=== PATIENT | female | born 1985 | race Caucasian/White ===

== ENCOUNTER 2016-10-22 10:11 | Emergency (ER) | payer BC ==
[2016-10-22 10:46] VITALS: BP 99/59
--- NOTE | 2016-10-22 11:32 | UC ---
Back Pain HPI - HPI Summary HPI Summary: complaint of back pain that started yesterday morning pain is in her lower thoracic spine that radiates up into her shoulder constant aching pain movement of her arms, twisting causes a sharp pain in her upper back straightening her back worsens pain used a heating pad with some relief took some tylenol with codeine approx 1.5 hours ago wuith minimal relief denies trauma recently started exercises on a stabilty ball and at work was moving a large amount fo boxes on sunday denies fever , unintentional weight loss, incontinence - History of Current Complaint Chief Complaint: UCBackPain Stated Complaint: BACK PAIN Time Seen by Provider: 10/22/16 11:25 Hx Obtained From: Patient Hx Last Menstrual Period: 10/15/16 - Allergies/Home Medications Allergies/Adverse Reactions: Allergies Allergy/AdvReac Type Severity Reaction Status Date / Time No Known Allergies Allergy Verified 10/22/16 10:46 Home Medications: Home Medications Acetaminop/Codeine 30 MG TAB* [Tylenol/Codeine 30 MG TAB*] 1 tab PO Q6H PRN [History Confirmed 10/22/16] BuPROPion XL* [Bupropion XL*] 300 mg PO DAILY 10/22/16 [History Confirmed ] FLUoxetine CAP* [Prozac CAP*] 20 mg PO DAILY 10/22/16 [History Confirmed ] PMH/Surg Hx/FS Hx/Imm Hx Previously Healthy: Yes Cardiovascular History Of: Reports: Hypertension Neurological History Of: Reports: Migraine - Surgical History Surgical History: Yes Surgery Procedure, Year, and Place: (3) [place] [facility] [place] - Family History Known Family History: Positive: Hypertension - parents Negative: Cardiac Disease, Diabetes - Social History Occupation: Employed Full-time Lives: With Family Alcohol Use: Occasionally Substance Use Type: None Smoking Status (MU): Former Smoker Type: Cigarettes Have You Smoked in the Last Year: No Review of Systems Constitutional: Negative Skin: Negative Eyes: Negative ENT: Negative Respiratory: Negative Cardiovascular: Negative Gastrointestinal: Negative Genitourinary: Negative Motor: Negative Neurovascular: Negative Musculoskeletal: Other: - back pain Neurological: Negative Psychological: Negative All Other Systems Reviewed And Are Negative: Yes Physical Exam Triage Information Reviewed: Yes Appearance: Well-Nourished, Pain Distress, Obese Vital Signs: Initial Vital Signs Temp 98.5 F 10/22/16 10:36 Pulse 64 10/22/16 10:36 Resp 14 10/22/16 10:36 BP 99/59 10/22/16 10:36 Pulse Ox 97 10/22/16 10:36 Vital Signs Reviewed: Yes Eyes: Positive: Conjunctiva Clear ENT: Positive: Pharynx normal, TMs normal Neck: Positive: Supple, No Lymphadenopathy, Other: - no spine tenderness Respiratory: Positive: Lungs clear, Normal breath sounds, No respiratory distress, No accessory muscle use Cardiovascular: Positive: RRR, No Murmur, Pulses Normal Abdomen Description: Positive: Nontender, No Organomegaly, Soft Bowel Sounds: Positive: Present Musculoskeletal: Positive: Other: - Spine have no noted deformities or signs of inflammation. Curvature of thoracic, and lumbar spine are within normal limits. Bony features of shoulders and hips are of equal height bilaterally. Posture is upright, and gait is smooth and normal. Spinous processes of T1-L5 palpable, midline, and non-tender; No step-offs. right lumbar paraspinal tenderness. Flexion, extension, and rotation of the remaining spinal column is limited due to pain, extension causes the most pain. Lateral bending to the right causes [pain. Neurological Exam: Normal Neurological: Positive: Other: - patellar reflexes intact, SLR negative bilaterally Psychological Exam: Normal Skin Exam: Normal Back Pain Course/Dx - Differential Dx/Diagnosis Differential Diagnosis/HQI/PQRI: Herniated Disc, Strain, Sprain Provider Diagnoses: back pain Discharge - Discharge Plan Condition: Stable Disposition: HOME Prescriptions: Metaxalone TAB* [Skelaxin TAB*] 800 mg PO TID #30 tab Patient Education Materials: Back Pain (ED) Forms: *Work Release Referrals: Alison Tam MD [Primary Care Provider] - Additional Instructions: Start skelaxin as directed. Do not drink alcohol or drive while taking skelaxin Please call physical therapy for further evaluation and treatment. Take ibuprofen for fever or pain. Increase fluids and rest. Please review your discharge instructions. If your symptoms do not improve please call your primary care provider or return to urgent care.
== END 2016-10-22 11:56 | disposition home or self-care (01) ==
LOC: UCCORT 10:11
DX: M54.9 Dorsalgia, unspecified (principal); I10 Essential (primary) hypertension; G43.909 Migraine, unspecified, not intractable, without status migrainosus; Z87.891 Personal history of nicotine dependence; E66.9 Obesity, unspecified
CPT/HCPCS: 99212; G0463

== ENCOUNTER 2017-08-30 16:38 | Emergency (ER) | payer BC ==
[2017-08-30 16:46] VITALS: BP 151/93
--- NOTE | 2017-08-30 18:07 | UC ---
Abdominal Pain Female HPI - HPI Summary HPI Summary: Patient is a 32-year-old female presenting to the from [facility] with chief complaint of suprapubic pain described as cramping with associated back pain. Denies any urinary symptoms. The patient is currently trying to conceive and is 4 days late past her menses. She is on her fifth month s/p control. History of PCOS. She states this feels like menstrual cramps, but denies any bleeding or other discharge. She has taken multiple tests, the soonest was this morning, all which have been negative. She has a follow-up [facility] visit in 6 days due to her PCOS. History of abdominoplasty several years ago. Denies any fevers, sweats, chills. Denies any nausea, vomiting, diarrhea, constipation. She typically has severe cramps with her menses and states this feels similar, although has been 4 days of cramping and usually will have her. By this time. She is concerned over ectopic as well as normal or ovulation pain. - History of Current Complaint Chief Complaint: UCGU Stated Complaint: ABDOMINAL AND BACK PAIN Time Seen by Provider: 08/30/17 16:54 Hx Obtained From: Patient Hx Last Menstrual Period: 07/30/17 ?: No Onset/Duration: Sudden Onset Timing: Constant Severity Initially: Moderate Severity Currently: Moderate Pain Intensity: 3 Pain Scale Used: 0-10 Numeric Location: Suprapubic Radiates: No Character: Cramping Aggravating Factor(s): Nothing Alleviating Factor(s): Nothing Associated Signs and Symptoms: Positive: Back Pain. Negative: Constipation, Blood in Stool, Urinary Symptoms, Decreased Appetite, Vaginal Bleeding, Nausea, Vomiting, Diarrhea - Risk Factors Ectopic Risk Factor: Maternal Age ^ 30 Ovarian Torsion Risk Factor: Reproductive Age, Ovarian Cysts/Tumors Allergies/Adverse Reactions: Allergies Allergy/AdvReac Type Severity Reaction Status Date / Time No Known Allergies Allergy Verified 08/30/17 16:46 PMH/Surg Hx/FS Hx/Imm Hx Previously Healthy: Yes - Surgical History Surgical History: Yes Surgery Procedure, Year, and Place: (3) C-sections- [facility] – [place]- 2005/2007/2008 - Family History Known Family History: Positive: Hypertension - parents Negative: Cardiac Disease, Diabetes - Social History Occupation: Employed Full-time Lives: With Family Alcohol Use: Occasionally Substance Use Type: None Smoking Status (MU): Former Smoker Type: Cigarettes Have You Smoked in the Last Year: No Review of Systems Constitutional: Negative Skin: Negative Respiratory: Negative Cardiovascular: Negative Gastrointestinal: Abdominal Pain Genitourinary: Negative Neurovascular: Negative Musculoskeletal: Negative Neurological: Negative Psychological: Anxious All Other Systems Reviewed And Are Negative: Yes Physical Exam Triage Information Reviewed: Yes Appearance: Pain Distress Vital Signs: Initial Vital Signs Temp 98.6 F 08/30/17 16:42 Pulse 95 08/30/17 16:42 Resp 19 08/30/17 16:42 BP 151/93 08/30/17 16:42 Pulse Ox 100 08/30/17 16:42 Vital Signs Reviewed: Yes Eye Exam: Normal Neck exam: Normal Neck: Positive: Supple, No Lymphadenopathy Respiratory Exam: Normal Respiratory: Positive: Chest non-tender, Lungs clear Cardiovascular Exam: Normal Cardiovascular: Positive: RRR Abdomen Description: Positive: Soft Musculoskeletal: Positive: Strength Intact Psychological Exam: Normal Psychological: Positive: Normal Response To Family Skin Exam: Normal Abd Pain Female Course/Dx - Course Course Of Treatment: During the course of treatment, the patient is discussed with at length the possibilities for her abdominal cramping. Due to the suprapubic nature of the abdominal pain, likely differentials are UTI, , ovulation pain, menstrual cramps, ectopic, PCOS, dysmenorrhea. UA obtained which is negative for UTI and shows negative . Unable to perform an ultrasound here in the urgent care and I have advised the patient to go to the emergency room. She states she is unable to afford that at this time. Again, I discussed with her at length the possibilities of her abdominal pain, due to a negative it is unlikely she has ectopic . She is requesting a hCG blood test at this time she is concerned the UA will not show as it may be too soon. This may be a very early and or ovulation pain , which does not warrant an ultrasound at this time. I did not feel ruling out ectopic is essential at this time, the patient is encouraged to follow up with the emergency room for any worsening or changing symptoms. This may be dysmenorrhea in which likely she will have her menses soon. She will follow-up with [facility] in 6 days as her regular appointment. She is encouraged prostaglandins (NSAIDs) for relief, but I have given her some pain control as well. - Differential Dx/Diagnosis Provider Diagnoses: Suprapubic Pain Discharge - Sign-Out/Discharge Documenting (check all that apply): Discharge - Discharge Plan Condition: Stable Disposition: HOME Prescriptions: Hydrocodone/Acetamin 10/325(NF [Jay 10/325 (NF)] 1 tab PO Q6H #12 tab MDD 4 Patient Education Materials: Dysmenorrhea (ED), [place] (ED) Referrals: Alison Tam MD [Primary Care Provider] - Additional Instructions: I have given you information on some topics we discussed I am unable to discern where your discomfort is from I still recommend you follow up with Emergency Department for any worsening symptoms Urinalysis shows no UTI and negative for HCG lab result will return in approximately 24 hours, we will call with positive results, however you are more than welcome to call us too. Please keep your appt with OBGYN next week Ibuprofen 600mg three times daily for cramping Hydrocodone as prescribed for pain Moist heat to the back and lower abdomen - Billing Disposition and Condition Condition: STABLE Disposition: HOME
== END 2017-08-30 17:50 | disposition home or self-care (01) ==
LOC: UCEAST 16:38
DX: R10.30 Lower abdominal pain, unspecified (principal); Z87.891 Personal history of nicotine dependence
CPT/HCPCS: 36415; 81003; 84702; 99212; G0463

== ENCOUNTER 2018-07-26 16:48 | Emergency (ER) | payer OTHER ==
--- OUTSIDE RECORDS SUMMARY | 2018-07-26 17:37 | XMS REPORT | Continuity of Care Document ---
:1985 External Reference #:[id number] Author Name Moreno Hatch M.D. Address [address] [place] [address] Care Team Providers Name Role Phone Moreno Hatch M.D. Care Team Information Employee Adviser Unavailable Payers Date Identification Numbers Payment Provider Subscriber Policy Number: [id number] [facility] Kasandra Molina PayID: [id number] [address] [place] [address] Policy Number: [id number] [place] Kasandra Molina PayID: [id number] [address] [place] [address] Advance Directives Description No Information Available Problems Description No Information Family History Date Family Member(s) Observation Comments Father A&W Mother A&W First Son A&W Second Son A&W First Daughter A&W Number of Siblings Siblings: none Paternal Grandfather A&W Paternal Grandmother A&W Maternal Grandfather Hypertension Maternal Grandfather due to CT () Maternal Grandmother due to Breast Cancer () Social History Type Date Description Comments Sex Unknown Education Highest level of education completed is an associate degree Marital Status Patient is Living Situation Lives with spouse, sons and daughter Pets Household pets include 2 dogs Occupation Homemaker Environmental Hazards Not exposed to any environmental hazards--low lead risk. Cigarette Use Former cigarette smoker- quit 2015. 1PPD for 14 yrs Alcohol Alcohol use prior to : 2 drinks/week. Stopped with Tobacco Use Start: Unknown Patient is a former End: Unknown smoker Drug Use Denies drug use Smoking Status Reviewed: 02/01/18 Patient is a former smoker Daily Caffeine Does not consume caffeine, stopped with due to n/v. Exercise Type/Frequency Exercises regularly Current Seat Belt/Car Seat Always uses a seat belt STD's No STD history CHERRY: 09/30/2018 Estimated Date of Based on 1st Delivery Ultrasound Allergies, Adverse Reactions, Alerts Description No Known Drug Allergies Medications Medication Date Status Form Strength Qnty SIG Indications Ordering Provider Ryan 03/[address] 10-10mg 60tab take 2 s tablets by Gilberto mouth at CNM bedtime, may add 1 tablet in morning and one midday if needed. PNV-Dha 03/12 Active Capsules 27-0.6-0. 30cap 1 by mouth 4-300mg s every day Mcmullen, CNM Blood Glucose 03/12 Active Kit W/Device 1Moni use in in tor the morning Mcmullen, System before CNM eating, then 2 hours after every meal Blood Glucose 03/12 Active Strips 1Box for use Mya with blood Mcmullen, glucose CNM monitoring system. test 4x day as directed Lancets 03/12 Active Misc 100un for use its with blood Mcmullen, glucose CNM monitor. use as directed four times a day Valium 12/27 Hx Tablets 5mg 3tabs 1 po prior to Bridgette - procedure [facility] 01/29 prn, nte tab daily Naproxen 11/11 Hx Tablets 500mg 1 by mouth R51 Megan twice a day Bridgette - with food [employer] 01/29 samples Acetaminophen-Co 11/11 Hx Tablets 300-30mg 90tab 1-2 every 8 R51 kishor Guzman #3 /2015 s hours as Bridgette - needed for [employer] 01/29 pain Prozac 06/09 Hx Capsules 20mg 90cap 1 by mouth Megan, s every day Bridgette - [employer] 02/21 Topamax 06/09 Hx Tablets 50mg 90tab 1 by mouth F41.1 Megan, s once a day Bridgette - [employer] 02/21 Bupropion HCL ER 12/01 Hx Tablets ER 150mg 90tab 1 by mouth F41.9 Megan, (XL) 24HR s every day Bridgette - [employer] 03/12 Reyna 03/05 Hx Tablets 3-0.03mg 3tabs take one Z30.9 Megan, tablet by Bridgette - mouth every [employer] Sherlyn 06/22 Hx Tablets 3-0.03mg 1pack uase as Julia directed Shanta Prado, 02/21 Cephalexin 06/22 Hx Tablets 500mg 21tab 1 tablet Julia s every 8 [place] - gale Prado, 02/21 Ortho Tri-Cyclen 01/10 Hx Tablets 0.18/0.21 1pack 1po qd 5/0.25 Michaelle, - mg-3 CNM 02/21 Keflex 08/09 Hx Capsules 500mg 14cap one tab bid s x 7 days Roxana MORGAN, - CN 02/21 Metronidazole 06/23 Hx Tablets 500mg 14tab 1 po bid x s 7 days [place], - [facility] 06/11 Diflucan 06/23 Hx Tablets 150mg 2tabl 1 tablet ets today. mr x [place], - 3 days if [facility] 06/11 symptoms persist. Vernell 28 06/09 Hx Tablets 3-0.03mg 3tabs 1 po qd,please [place], - substitute CNM 01/10 Prenate Dha 03/02 Hx Capsules 27-0.6-0. 30cap 1 po qd 4-30 s Benedict, - [facility] 06/11 Anusol-HC 02/26 Hx Cream 2.5% 1Tube apply 3xd prn Michaelle, - CNM 03/10 Prenate Dha 08/18 Hx Capsules 30cap 1 po qd s Benedict, - CNM 03/02 Ortho Tri-Cyclen 12/08 Hx Tablets 1Pack 1 po qd Moreno AValentina /2007 Shivam Hatch M.D. 08/18 Nor Q D 11/20 Hx 28uni 1 PO qd Moreno AValentina /2007 ts Shivam Hatch M.D. 12/08 Humulin N 03/04 Hx Injection 100Units/ 10ml 2 units Moreno Villagomez /2006 ML subcutaneou Holden, - s nph at M.D. 03/10 bedtime Insulin Syringes 03/04 Hx 100un use as Moreno Villagomez /2006 its directed Shivam Hatch M.DValentina 03/10 Ortho Tri-Cyclen 08/07 Hx Tablets 0.035mg;0 3Mont 1 po qd Flores Gutierrez /2006 .18mg;0.0 hs Rigo - 35 M.D. 03/04 Precare Premier 05/09 Hx 100un 1 PO qd Flores MValentina /2005 its Rigo - M.DValentina 11/04 Ampicillin 04/09 Hx Capsules 250mg 40cap One Tab 4X Javid Ashley /2005 s Per Day Shivam Espinoza M.D. 05/09 Lo-Dose Ultra 03/14 Hx 100un to use bid Flores Gutierrez Fine Insulin /2005 its as directed Rigo Syringes - M.DValentina 05/09 Diphenhydramine 02/07 Hx Tablets 25mg 30tab 1-2 tablets Mya /2005 s po hs prn Benedict - [facility] 05/09 Ucose Meter 01/02 Hx use qid for Naga Cedillo, /2005 bs C.N.M. - monitoring 01/02 One Touch Ulta 01/02 Hx 100un to use qid Flores Gutierrez Glucose Meter /2005 its for bs Rigo - monitoring M.D. 05/09 One Touch Ultra 01/02 Hx 100un To Use qid Naga Cedillo Strips /2005 its For BS C.N.M. - Testing 05/09 Accu-Check 12/29 Hx 1unit use as Dionna Compact /2005 s directed Roxana MORGAN, Glucometer - [facility] 11/04 Accu-check 12/29 Hx to use qid Mya Compact Glucose /2005 for bs Benedict Glucometer - testing [facility] 07/04 Accu-Check 12/29 Hx 100un to use qid Dionna Compact Test /2005 its as directed Roxana LUSTER APPLICATOR, Strips - [facility] 11/04 Accu-Check 12/29 Hx 100un as directed Dionna Compact Lancets /2005 its Roxana MORGAN, - [facility] 11/04 Terazol 3 10/06 Hx Cream 0.8% 1 Mya Applicator Benedict, - Per Vagina CNM 05/09 hs X3 Promethazine 09/11 Hx Tablets 25mg 10tab Take one Flores Gutierrez s tablet Rigo, - every 8 hrs M.D. 05/09 as needed for nausea. 08/16 Hx Tablets 30tab 1 po qd Moreno Villagomez Vitamins s Holden - M.D. 08/18 [place] 08/08 Hx Tablets 120mg;200 90tab Kamryn mg s Stephan - C.N.M. 08/16 Humulin N 08/08 Hx Injection 100Units/ 10ml 2 units Flores Gutierrez ML subcutaneou Shivam Sierra s each am M.D. 05/09 and each qd Low Dose Ulta 08/08 Hx 100un to use for Flores KendallValentina Suarez Insu its bid as Rigo, Syringes - directed M.D. 03/14 Omeprazole Hx Capsules 20mg 90cap 1 by mouth Megan, /0000 DR turner every day Bridgette - ELISEO 02/21 Vitamin B-12 Hx Tablets 1000mcg 1 by mouth Unknown /0000 every other - day- 03/12 Calcium 600+D Hx Tablets 600-400mg one by Unknown /0000 -Unit mouth three - times a 02/21 day- /2015 Valerie Fluoxetine HCL Hx Unknown (PMDD) / - 01/29 Multivitamin 00/ Hx Unknown Women /0000 - 01/29 Calcium + D3 00/ Hx Unknown /0000 - 03/12 Magnesium 00/00 Hx Unknown /0000 - 03/12 Vitamin Hx Unknown /0000 - 03/12 Medications Administered in Office Medication Date Status Form Strength Qnty SIG Indications Ordering Provider PT SCRN Tbco Administered Injection Moreno Villagomez Id as Non User 019 Brandon Hatch PT SCRN Tbco Administered Injection Moreno Villagomez Id as Non User 018 Brandon Hatch PT SCRN Tbco Administered Injection Moreno Oscar as Non User 018 Brandon Hatch Immunizations CPT Code Status Date Vaccine Lot # [id number] Given 06/18/2018 Tetnus, Diptheria Toxoids And Acellular Pertussis, [id number] PT > 7Yrs Old [id number] Given 02/16/2009 Influenza Virus Vaccine 3Years Or Older Vital Signs Date Vital Result Comment 03/12/2018 10:01am BP Systolic 118 mmHg BP Diastolic 70 mmHg Height 63 inches 5'3" Weight 195.00 lb BMI (Body Mass Index) 34.5 kg/m2 Last Menstrual Period [id number] 4 Parity 3 02/01/2018 2:27pm BP Systolic 122 mmHg BP Diastolic 72 mmHg Height 63 inches 5'3" Weight 201.00 lb BMI (Body Mass Index) 35.6 kg/m2 Last Menstrual Period [id number] 4 Parity 3 01/29/2018 8:29am BP Systolic 118 mmHg BP Diastolic 72 mmHg Height 63 inches 5'3" Weight 200.00 lb BMI (Body Mass Index) 35.4 kg/m2 Last Menstrual Period [id number] 4 Parity 3 02/22/2016 3:06pm BP Systolic 112 mmHg BP Diastolic 80 mmHg Height 63 inches 5'3" Weight 163.00 lb BMI (Body Mass Index) 28.9 kg/m2 Last Menstrual Period [id number] 3 Parity 3 12/28/2015 1:04pm BP Systolic 110 mmHg BP Diastolic 70 mmHg Body Temperature 98.2 F Heart Rate 64 /min Respiratory Rate 18 /min Height 63 inches Weight 162.00 lb BMI (Body Mass Index) 28.7 kg/m2 11/12/2015 8:11am BP Systolic 110 mmHg BP Diastolic 70 mmHg Body Temperature 98.4 F Heart Rate 72 /min Respiratory Rate 16 /min Height 63 inches Weight 164.00 lb BMI (Body Mass Index) 29.0 kg/m2 06/29/2010 8:35am BP Systolic 120 mmHg BP Diastolic 84 mmHg Weight 203.00 lb Last Menstrual Period [id number] 3 Parity 3 06/22/2010 2:28pm BP Systolic 160 mmHg Pt advised to monitor bp's and contact pcp BP Diastolic 100 mmHg Pt advised to monitor bp's and contact pcp Weight 205.00 lb 05/25/2010 10:49am BP Systolic 138 mmHg BP Diastolic 82 mmHg Body Temperature 98.8 F Weight 207.00 lb Last Menstrual Period [id number] 3 Parity 3 08/09/2009 9:26am BP Systolic 118 mmHg BP Diastolic 70 mmHg Body Temperature 96.4 F Weight 175.00 lb 07/14/2009 10:16am BP Systolic 108 mmHg BP Diastolic 60 mmHg Height 62.5 inches 5'2.50" Weight 178.00 lb BMI (Body Mass Index) 32.0 kg/m2 Last Menstrual Period [id number] 2 Parity 2 06/23/2009 9:21am BP Systolic 124 mmHg BP Diastolic 72 mmHg Height 62.50 inches 5'2.50" Weight 184.00 lb BMI (Body Mass Index) 33.1 kg/m2 04/12/2009 1:05pm BP Systolic 116 mmHg BP Diastolic 70 mmHg Height 62.50 inches 5'2.50" Weight 179.00 lb BMI (Body Mass Index) 32.2 kg/m2 03/10/2009 10:05am BP Systolic 130 mmHg BP Diastolic 80 mmHg Weight 200.00 lb 02/24/2009 10:35am BP Systolic 110 mmHg BP Diastolic 68 mmHg Body Temperature 98.8 F Heart Rate 72 /min Respiratory Rate 16 /min Height 62.5 inches 5'2.50" Weight 198.00 lb BMI (Body Mass Index) 35.6 kg/m2 3 Parity 2 08/18/2008 8:20am BP Systolic 128 mmHg BP Diastolic 60 mmHg Height 62.5 inches 5'2.50" Weight 188.00 lb BMI (Body Mass Index) 33.8 kg/m2 11/05/2007 11:25am BP Systolic 114 mmHg BP Diastolic 76 mmHg Height 62.5 inches 5'2.50" Weight 208.00 lb BMI (Body Mass Index) 37.4 kg/m2 Last Menstrual Period 0 2 Parity 2 09/30/2007 10:45am BP Systolic 142 mmHg BP Diastolic 84 mmHg Height 62.5 inches 5'2.50" Weight 211.00 lb BMI (Body Mass Index) 38.0 kg/m2 09/18/2007 12:57pm BP Systolic 114 mmHg BP Diastolic 70 mmHg Heart Rate 77 /min Respiratory Rate 16 /min Height 62.5 inches 5'2.50" Weight 227.00 lb BMI (Body Mass Index) 40.9 kg/m2 Last Menstrual Period 0 05/09/2006 1:23pm BP Systolic 122 mmHg BP Diastolic 85 mmHg Weight 190.00 lb Last Menstrual Period [id number] 1 04/23/2006 12:56pm BP Systolic 128 mmHg BP Diastolic 70 mmHg Height 63 inches 5'3" Weight 190.00 lb BMI (Body Mass Index) 33.7 kg/m2 04/09/2006 2:55pm BP Systolic 128 mmHg BP Diastolic 70 mmHg Height 64 inches 5'4" Weight 197.31 lb BMI (Body Mass Index) 33.9 kg/m2 Results Test Date Facility Test Result H/L Range Note Urine Drug 04/23/2018 [facility] Urine Amphetamine Negative ng/ mL 1 Comp [address] [place] [address] [phone] Urine Barbiturates Negative ng/mL 2 Urine Benzodiazepines Negative ng/mL 3 Urine Cocaine Negative ng/mL 4 Urine Phencyclidine Negative ng/mL Cutoff: 25 Urine Tetrahydrocannabinol Negative ng/mL Cutoff: 50 5 Creatinine, Urine 219.6 mg/dL Specific [place] 1.025 pH 5.8 Oxidants Negative 6 Adulterants Comment Normal Codeine, Ur Not Detected ng/mL Cutoff: 25 7 Xzrkkut-5-xevb-glucuronide, Ur Not Detected ng/mL 8 Morphine, Ur Not Detected ng/mL Cutoff: 25 9 Hshtrkjf-3-xsob-glucuronide, U Not Detected ng/mL 10 6-monoacetylmorphine, Ur Not Detected ng/mL Cutoff: 25 11 Hydrocodone, Ur Not Detected ng/mL Cutoff: 25 12 Norhydrocodone, Ur Not Detected ng/mL Cutoff: 25 13 Dihydrocodeine, Ur Not Detected ng/mL Cutoff: 25 14 Hydromorphone, Ur Not Detected ng/mL Cutoff: 25 15 Wzjfmipwybkfa6elwectlhwlzcyxe Not Detected ng/mL 16 Oxycodone, Ur Not Detected ng/mL Cutoff: 25 17 Noroxycodone, Ur Not Detected ng/mL Cutoff: 25 18 Oxymorphone, Ur Not Detected ng/mL Cutoff: 25 19 Cnmpjrlwrgk-9-eszr-glucuronide Not Detected ng/mL 20 Noroxymorphone, Ur Not Detected ng/mL Cutoff: 25 21 Fentanyl, Ur Not Detected ng/mL Cutoff: 2 22 Norfentanyl, Ur Not Detected ng/mL Cutoff: 2 23 Meperidine, Ur Not Detected ng/mL Cutoff: 25 24 Normeperidine, Ur Not Detected ng/mL Cutoff: 25 25 Naloxone, Ur Not Detected ng/mL Cutoff: 25 26 Ypawadwf-9-puwq-glucuronide, U Not Detected ng/mL 27 Methadone, Ur Not Detected ng/mL Cutoff: 25 28 Eddp, Ur Not Detected ng/mL Cutoff: 25 29 Propoxyphene, Ur Not Detected ng/mL Cutoff: 25 30 Norpropoxyphene, Ur Not Detected ng/mL Cutoff: 25 31 Tramadol, Ur Not Detected ng/mL Cutoff: 25 32 O-desmethyltramadol, Ur Not Detected ng/mL Cutoff: 25 33 Tapentadol, Ur Not Detected ng/mL Cutoff: 25 34 N-desmethyltapentadol, Ur Not Detected ng/mL Cutoff: 50 35 Caxrcxltbb-olqp-tcdakbulmcu, U Not Detected ng/mL 36 Buprenorphine, Ur Not Detected ng/mL Cutoff: 5 37 Norbuprenorphine, Ur Not Detected ng/mL Cutoff: 5 38 Norbuprenorphine glucuronide Not Detected ng/mL Cutoff: 20 39 Opioid Interpretation See Comment 40 Serum Integrated Screen Part 2 MT 04/23/2018 [facility] Interpretation SEE BELOW 41 Risk For Ontd <1:5000 Age Risk Down Syndrome 1:460 NORBERTO Down Syndrome Risk 1:2800 <1:270 NORBERTO Trisomy 18 Risk <1:5000 <1:100 Calculated Gestational Age 17.0 Afp,Serum 30.1 ng/mL Afp Mom 1.01 42 HCG,Serum 70.2 IU/mL HCG Mom 3.05 Estriol,Free 1.36 ng/mL Estriol Mom 1.56 Inhibin A,Dimeric 364 pg/mL Inhibin A Mom 2.59 Liana-A 1151.9 ng/mL 43 Liana-A Mom 1.66 44 Referring Physician Name GELBER Referring Physician Phone NOT GIVEN Referring Physician Npi NOT GIVEN Specimen # From Part 1 SEE NOTE Date Of 1985 Collection Date 04/23/2018 Maternal Weight 214 lbs Est'd Date Of Delivery 10/01/2018 Mother's Ethnic Origin Insulin Depend Diabetic N Repeat Specimen N Number Of Fetuses 1 HX Of Neural Tube Defects N Cigarette Smoker NOT GIVEN 45 Sequential Integreated SCRN 2 MT 04/23/2018 [facility] Interpretation SEE BELOW 46 Risk For Ontd UNAVAILABLE Age Risk Down Syndrome UNAVAILABLE NORBETRO Down Syndrome Risk UNAVAILABLE <1:270 NORBERTO Trisomy 18 Risk UNAVAILABLE <1:100 Calculated Gestational Age UNAVAILABLE Afp,Serum UNAVAILABLE ng/mL Afp Mom SEE BELOW 47 HCG,Serum UNAVAILABLE IU/mL HCG Mom UNAVAILABLE Estriol,Free UNAVAILABLE ng/mL Estriol Mom UNAVAILABLE Inhibin A,Dimeric UNAVAILABLE pg/mL Inhibin A Mom UNAVAILABLE Liana-A UNAVAILABLE ng/mL 48 Liana-A Mom UNAVAILABLE NT Mom UNAVAILABLE Referring Physician Name NOT GIVEN Referring Physician Phone NOT GIVEN Referring Physician Npi NOT GIVEN Specimen # From Part 1 NOT GIVEN Date Of 1985 Collection Date 04/23/2018 Maternal Weight 214 lbs Est'd Date Of Delivery NOT GIVEN Nuchal Translucency NOT GIVEN mm [place] Length NOT GIVEN mm Ultrasound Date NOT GIVEN Nasal Bone NG Mother's Ethnic Origin NOT GIVEN Insulin Depend Diabetic NOT GIVEN Repeat Specimen NOT GIVEN Number Of Fetuses NOT GIVEN HX Of Neural Tube Defects NOT GIVEN Cigarette Smoker NOT GIVEN Twin B Nasal Bone NG 49 GC/Chlamydia Dna 03/27/2018 [facility] Chlamydia [place] [address] trachomatis Rna [phone] Neisseria gonorrhoeae (GC) Rna Negative Negative Serum Integrated SCRN Part 1 MT 03/27/2018 [facility] Comment SEE BELOW 50 Referring Physician Name GELBER 51 Referring Physician Phone NG 52 Referring Physician Npi NG 53 Date Of 1985 54 Collection Date 03/27/2018 55 Maternal Weight 195 lbs 56 Est'd Date Of Delivery 10/01/2018 57 CHERRY Determined By US 58 Mother's Ethnic Origin C 59 Number Of Fetuses 1 60 Insulin Depend Diabetic N 61 Repeat Specimen N 62 HX Of Neural Tube Defects N 63 Prev Down Synd N 64 Donor Egg N 65 Donor Age:Egg Retrieval N/A 66 Cigarette Smoker NG 67 Spinal Muscular Atrophy 03/27/2018 [facility] Technical Results NEGATIVE Negative 68 SMN1 2 COPIES SMN2 2 COPIES Interpretation SEE BELOW 69 PNL No 03/27/2018 [facility] Rubella Screen Immune Immune 70 [place] [address] [phone] Hemoglobin A1c 5.2 % N 4.0-5.6 71 Hepatitis B Surface Ag Nonreactive Nonreactive 72 Syphillis Igg W/Reflex RPR Nonreactive Nonreactive 73 CBC With No 03/27/2018 [facility] White Blood 8.9 10^3/uL N 3.5-10[place]8 [place] [address] Count [phone] Red Blood Count 4.02 10^6/uL N 4.00-5.40 Hemoglobin 12.3 g/dL N 12.0-16.0 Hematocrit 37 % N 35-47 Mean Corpuscular Volume 91 fL N 80-97 Mean Corpuscular Hemoglobin 31 pg N 27-31 Mean Corpuscular HGB Conc 34 g/dL N 31-36 Red Cell Distribution Width 15 % N 10.5-15 Platelet Count 215 10^3/uL N 150-450 Mean Platelet Volume 9.3 um3 N 7.4-10.4 Type And Screen 03/27/2018 [facility] Patient [place] [address] [phone] Antibody Screen NEGATIVE HIV 1/2 AB 03/27/2018 [facility] HIV 1 2 Nonreactive Nonreactive [address] [place] [address] Antibody [phone] Lead 03/27/2018 [facility] Lead,Venous, < 1.0 g/dL 0.0-4.9 [address] [place] [address] B [phone] Venous/Capillary Venous Submitting Laboratory Phone [phone] Laboratory test 03/27/2018 [facility] TSH 1.18 N 0.34-5.60 77 [place] [address] mcIU/mL [phone] Urine Culture And 03/12/2018 [facility] Urine Culture SEE RESULT [address] [place] [address] BELOW [phone] Laboratory test 01/29/2018 [facility] HCG 5628.00 79 [place] [address] mIU/mL [phone] Comprehensive 12/01/2014 N2N/CCD Import A/G Ratio 1.5 CALC 0.6-2.3 Metabolic Prof Albumin 4.3 g/dL 3.8-5.5 Alk. Phosphatase 71 U/L 30-110 Alt (SGPT) 12 U/L 7-35 Ast (Sgot) 13 U/L 5-34 BUN 16 mg/dL 6-26 BUN/Creat Ratio 20.0 CALC 8.0-36.0 Calcium 9.6 mg/dL 8.6-10.2 Carbon Dioxide 24 mEq/L 21-32 Chloride 102 mEq/L 94-112 Creatinine 0.8 mg/dL 0.6-1.4 Globulin 2.9 g/dL 2.0-4.8 Glucose 100 mg/dL 70-105 Potassium 3.9 mEq/L 3.6-5.5 Sodium 136 mEq/L 134-149 Total Bilirubin 0.4 mg/dL 0.2-1.3 Total Protein 7.2 g/dL 6.4-8.3 Laboratory test 12/01/2014 N2N/CCD Import Hematocrit 35.7 % Low 36.1 - finding (Fma/CMC/CTX) 50.3 Hemoglobin (Fma/CMC/CTX) 12.4 g/dL 12.1 - 17.2 Lymph% 31.1 % 17.0-48.0 Mean Corpuscular Hemo Concen 34.7 32.0-36.0 Mean Corpuscular Hemoglobin 30.9 27.6-33.3 Mean Corpuscular Vol 89 82.2-97.4 Mean Platelet Volume 7.5 5.5-11.0 Mixed% 6.1 Neutrophils % 62.8 Platelets 242 10^3/ul 150-400 RBC 4.02 3.90-5.70 RDW 13.2 11.6-13.7 TSH 2.47 mIU/L 0.50-6.00 WBC 5.9 3.6-9.6 Laboratory test 12/01/2014 N2N/CCD Import C-Reactive Protein 7.5 mg/L High 0.0-5.0 80 finding Lipid And Glucose 06/08/2010 [facility] Glucose 121 mg/dL High 70-100 [place] [address] [phone] Lipid Profile 06/08/2010 [facility] Triglyceride 60 mg/dL 40- 200 (Trig/Chol/HDL) [place] [address] [phone] Cholesterol 190 mg/dL Less Than 200 81 High Density Lipoprotein 59 mg/dL 40-60 82 Cholesterol/HDL Ratio 3.22 AVERAGE 1-4.44 Low Density Lipoprotein 119 mg/dL High Less Than 100 83 CBC With 06/08/2010 [facility] White Blood 5.7 CUMM 4.8-10.8 [place] [address] Count [phone] Red Cell Count 4.21 CUMM 4.2-5.4 Hemoglobin 13.2 g/dL 12.0-16.0 Hematocrit 38 % 35-47 Mean Corpuscular Volume 91 um3 79-97 Mean Corpuscular Hemoglob 31 pg 27-31 Mean Corpuscular HGB Cone 35 g/dL 32-36 Redcell Distribution WDTH 13 % 10.5-15 Platelet Count 225 CUMM 150-450 Mean Platelet Volume 7.7 um3 7.4-10.4 Gran % 52.0 % 38-83 Lymph % 31.2 % 25-47 Mononuclear % 9.1 % High 1-9 Eosinophil % 7.0 % High 0-6 Basophil % 0.7 % 0-2 Abs Lymphs 1.8 1.0-4.8 Abs Mononuclear 0.5 0-0.8 Absolute Neutrophil Count 3.0 1.5-7.7 Abs Eosinophils 0.4 0-0.6 Abs Basophils 0 0-0.2 Testosterone Free 06/08/2010 [facility] Free 0.7 ng/dL 0.3- 1.9 84 & [place] [address] Testosterone [phone] Total Testosterone 46 ng/dL 8-60 85 Laboratory test 06/08/2010 [facility] TSH 1.13 MIU/ML 0.34- 5.60 [place] [address] [phone] Dhea 13 ng/mL Abnormal <13 86 Laboratory 07/14/2009 [facility] Cytology 87 [place] [address] <SEE NOTE> [phone] GC/Chlyamdia 07/14/2009 [facility] CHL On Thin NEGATIVE Negative [address] [place] [address] Prep Vial Vial [phone] GC On Thin Prep Vial NEGATIVE Negative 89 Laboratory 06/23/2009 [facility] Syphilis NON-REACTIVE Nonreactive [address] [place] [address] IgG [phone] Vad 06/23/2009 [facility] Vad Final NONREACTIVE Nonreactive [address] [place], [place] [address] [phone] Culture,HSV,Ra 06/23/2009 [facility] GENITAL-VAGINA/ 92 pid W/Typ V <SEE NOTE> HSV Culture (SEE NOTE) 93 CBC With 03/03/2009 [facility] White Blood 15.6 CUMM High 4.8- 10.8 [place] [address] Count [phone] Red Cell Count 3.66 CUMM Low 4.2-5.4 Hemoglobin 11.4 g/dL Low 12.0-16.0 Hematocrit 34 % Low 35-47 Mean Corpuscular Volume 92 um3 79-97 Mean Corpuscular Hemoglob 31 pg 27-31 Mean Corpuscular HGB Cone 34 g/dL 32-36 Redcell Distribution WDTH 14 % 10.5-15 Platelet Count 226 CUMM 150-450 Mean Platelet Volume 8.0 um3 7.4-10.4 Polysegmented Neutrophil 75 % 38-83 Band Neutrophil 2 % 0-8 Lymphocyte 19 % Low 25-47 Monocyte 1 % 0-13 Eosenophil 3 % 0-6 Absolute Neutrophil Count 12.0 Anisocytosis SLIGHT Platelet Evaluation LARGE Type And Screen 03/03/2009 [facility] Patient [place] [address] [phone] Antibody Screen NEGATIVE Specimen Discard Date 03/17/09 94 Laboratory test 02/16/2009 [facility] Genital For GRP NG2 [address] [place] [address] B Strep Only [phone] Laboratory test 12/28/2008 [facility] 2HR Glucose 142 mg/dL [address] [place] [address] [phone] 1HR Glucose 151 mg/dL 97 Fasting Glucose 97 mg/dL 70-110 3HR Glucose 103 mg/dL 98 1 TS 08/18/2008 [facility] Patient [place] [address] [phone] Antibody Screen NEGATIVE Vad 08/18/2008 [facility] Vad Final NONREACTIVE Nonreactive [address] [place] [address] [phone] Parvovirus 08/18/2008 [facility] Parvovirus 0.1 index <0.9 100 B19 AB B19 AB (Igm) (Igg,M) Parvovirus B19 AB (Igg) 4.2 index High <0.9 Urine Culture & 08/18/2008 [facility] Urine Culture NF1 [address] [place] [address] Sensitivi [phone] 1 08/18/2008 [facility] White Blood 6.5 CUMM 4.8-10 [place] [address] Count .8 [phone] Red Cell Count 3.99 CUMM Low 4.2-5.4 Hemoglobin 12.6 g/dL 12.0-16.0 Hematocrit 36 % 35-47 Mean Corpuscular Volume 90 um3 79-97 Mean Corpuscular Hemoglob 32 pg High 27-31 Mean Corpuscular HGB Cone 35 g/dL 32-36 Redcell Distribution WDTH 12 % 10.5-15 Platelet Count 223 CUMM 150-450 Mean Platelet Volume 8.2 um3 7.4-10.4 Gran % 67.6 % 38-83 Lymph % 21.3 % Low 25-47 Mononuclear % 9.0 % 1-9 Eosinophil % 1.7 % 0-6 Basophil % 0.4 % 0-2 Abs Lymphs 1.4 1.0-4.8 Abs Mononuclear 0.6 0-0.8 Absolute Neutrophil Count 4.4 1.5-7.7 Abs Eosinophils 0.1 0-0.6 Abs Basophils 0 0-0.2 RPR NON REACTIVE Nonreactive Hepatitis B Surface Ag NEGATIVE Negative Rubella Screen IMMUNE Immune Laboratory 08/18/2008 [facility] Cytology [address] [place] [address] <SEE NOTE> [phone] GC/ZHL On 08/18/2008 [facility] GC On Thin NEGATIVE Negative [address] [place] [address] Prep Vial [phone] CHL On Thin Prep Vial NEGATIVE Negative 104 Pathology/Surgical 09/20/2007 [facility] Surgical -- [address] [place] [address] Pathology <SEE NOTE> [phone] Urinalysis 09/16/2007 [facility] Ua Color YELLOW W/[place] [address] [phone] Appearance-Urine HAZY Bacteria-Urine 3+ Bilirubin-Ur NEGATIVE Negative Blood-Urine NEGATIVE Negative Epith Cells-Ur MODERATE Esterase-Urine NEGATIVE Negative Glucose-Urine NEGATIVE Negative Ketones-Urine 2+ Abnormal Negative Mucus Urine MODERATE Nitrite NEGATIVE Negative PH-Urine 5.0 5-9 Protein-Urine 1+ Abnormal Negative RBC-Urine 0-2 0-2 Zrqogrlhxshc-Wv-RGN NEGATIVE Negative Specific Vanderwagen-Ur 1.027 1.010-1.030 WBC-Urine 2-5 0-5 Laboratory test 08/29/2007 [facility] Genital For FINAL: [address] [place] [address] GRP B Strep NEGATIVE <SEE [phone] Only NOTE> Liver Function 08/05/2007 [facility] Albumin/Globu 1.1 1-3 [place] [address] bria Ratio [phone] Albumin 3.0 GM/DL Low 3.6-5.4 Alkaline Phosphatase 133 U/L High 30-110 Alt (SGPT) 23 U/L 14-54 Ast (Sgot) 18 U/L 12-42 Bilirubin Direct < 0.1 mg/dL Low 0.1-0.5 Globulin 2.7 GM/DL 2-4 Bilirubin Total 0.4 mg/dL 0.4-1.5 Total Protein 5.7 GM/DL Low 6.2-8.1 Renal Function Panel 08/05/2007 [facility] BUN 7 mg/dL 6-24 [place] [address] [phone] Calcium 9.5 mg/dL 8.7-10.2 Chloride 105 mmol/L 101-111 Co2 (Carbon Dioxide) 25.0 mmol/L 22-32 Glucose 173 mg/dL High 70-105 Potassium 4.3 mmol/L 3.5-5.0 Sodium 137 mmol/L 135-145 Phosphorus 4.6 mg/dL 2.4-4.7 BUN/Creatinine Ratio 8.8 8-20 Creatinine 0.8 mg/dL 0.5-1.4 Total Protein 24HR 08/05/2007 [facility] Total Protein RD 9 mg/ [place] [address] Urine OB Pat [phone] Urine Total Protein/24HR 220 MG/24HR High 0-165 Creatinine 08/05/2007 [facility] Creatinine Random 65.3 mg/[place] [address] Urine [phone] Serum Creatinine/Creat CL 0.8 mg/dL 0.5-1.4 Creat Clearance 139 mL/min High 80-125 Hours Of Collection 24 HR 24- Urine Volume Measurement 2450 ML Laboratory test 08/05/2007 [facility] Uric Acid 4.6 mg/dL 2.6 -7.2 [place] [address] [phone] CBC With 08/05/2007 [facility] White Blood 11.7 CUMM High 4.8- 10.8 [place] [address] Count [phone] Abs Basophils 0 0-0.2 Abs Eosinophils 0.2 0-0.6 Absolute Neutrophil Count 8.3 High 1.5-7.7 Abs Lymphs 2.3 1.0-4.8 Abs Mononuclear 0.8 0-0.8 Basophil % 0.2 % 0-2 Hematocrit 36 % 35-47 Hemoglobin 12.2 g/dL 12.0-16.0 Eosinophil % 1.9 % 0-6 Gran % 70.9 % 38-83 Lymph % 19.7 % Low 20-45 Mean Corpuscular HGB Cone 34 g/dL 32-36 Mean Corpuscular Hemoglob 30 pg 27-31 Mean Corpuscular Volume 89 um3 79-97 Mean Platelet Volume 8.6 um3 7.4-10.4 Mononuclear % 7.3 % 1-9 Platelet Count 286 CUMM 150-450 Red Cell Count 4.07 CUMM Low 4.2-5.4 Redcell Distribution WDTH 14 % 10.5-15 Laboratory test 07/03/2007 [facility] 3HR Glucose 149 mg/dL [address] [place], [place] [id number] [phone] 1HR Glucose 196 mg/dL 108 Fasting Glucose 95 mg/dL 70-110 2HR Glucose 160 mg/dL 109 Laboratory test 04/24/2007 [facility] Fasting 89 mg/dL 70- [address] [place] [address] Glucose [phone] 1HR Glucose 137 mg/dL 110 2HR Glucose 118 mg/dL 111 3HR Glucose 62 mg/dL 112 Urine Culture 03/05/2007 [facility] Urine Culture SCANT NORMAL [address] [place] [address] Sensitivi URE <SEE [phone] NOTE> 1 03/05/2007 [facility] [place] [address] Surface Ag [phone] Rubella Screen IMMUNE Immune White Blood Count 10.5 CUMM 4.8-10.8 Abs Basophils 0 0-0.2 Abs Eosinophils 0.2 0-0.6 Absolute Neutrophil Count 7.7 1.5-7.7 Abs Lymphs 2.0 1.0-4.8 Abs Mononuclear 0.7 0-0.8 Basophil % 0.4 % 0-2 Hematocrit 39 % 35-47 114 Hemoglobin 13.2 g/dL 12.0-16.0 Eosinophil % 1.5 % 0-6 Gran % 72.9 % 38-83 Lymph % 18.8 % Low 20-45 Mean Corpuscular HGB Cone 34 g/dL 32-36 Mean Corpuscular Hemoglob 31 pg 27-31 Mean Corpuscular Volume 91 um3 79-97 Mean Platelet Volume 8.6 um3 7.4-10.4 Mononuclear % 6.4 % 1-9 Platelet Count 279 CUMM 150-450 Red Cell Count 4.30 CUMM 4.2-5.4 Redcell Distribution WDTH 14 % 10.5-15 RPR NON REACTIVE Nonreactive Laboratory 03/05/2007 [facility] Cytology normal [address] [place] [address] <SEE NOTE> [phone] GC/ZHL On 03/05/2007 [facility] CHL On Thin NEGATIVE Negative [address] [place] [address] Prep Vial [phone] GC On Thin Prep Vial NEGATIVE Negative 117 Vad 03/05/2007 [facility] Vad Final NONREACTIVE Nonreactive [address] [place] [address] [phone] 1 TS 03/04/2007 [facility] [place] [address] Blood Type [phone] Antibody Screen NEGATIVE GC/Chlamydia Dna 05/09/2006 [facility] CHL By NEGATIVE Negative [address] [place] [address] Aptima [phone] GC By Aptima NEGATIVE Negative 120 Laboratory test 04/09/2006 [facility] Urine Culture SPECIMEN [address] [place] [address] Sensitivi CONTAIN <SEE [phone] NOTE> Laboratory test 03/07/2006 [facility] Hemoglobin A1c 6.0 % < 6.0 [address] [place] [address] [phone] Genital For GRP B Strep Only FINAL: NEGATIVE <SEE NOTE> 123 Laboratory test 12/22/2005 [facility] Fasting 95 mg/dL 70- [address] [place] [address] Glucose [phone] 2HR Glucose 167 mg/dL 124 3HR Glucose 127 mg/dL 125 1HR Glucose 169 mg/dL 126 Laboratory test 09/28/2005 [facility] Rapid Strep A THE UZBEK [address] [place] [address] ROCK <SEE NOTE> [phone] Basic Metabolic 09/28/2005 [facility] One Over 1.[address] [place] [address] Creatinine [phone] Anion Gap 10.0 mmol/L 2-11 128 BUN 4 mg/dL Low 6-24 Calcium 9.4 mg/dL 8.7-10.2 Chloride 102 mmol/L 101-111 Co2 (Carbon Dioxide) 21.0 mmol/L Low 22-32 Glucose 97 mg/dL 70-105 Potassium 3.4 mmol/L Low 3.5-5.0 Sodium 133 mmol/L Low 135-145 BUN/Creatinine Ratio 6.7 Low 8-20 Creatinine 0.6 mg/dL 0.5-1.4 Parvovirus B19, 08/08/2005 [facility] Parvovirus B19, IgG 6.1 index High 0.0 -0.8 129 Human, Igg/Igm Parvovirus B19, IgM 0.4 index 0.0-0.8 130 1 REFERENCE VALUE Cutoff: 500 2 REFERENCE VALUE Cutoff: 200 3 REFERENCE VALUE Cutoff: 100 4 REFERENCE VALUE Cutoff: 150 5 ADDITIONAL INFORMATION This report is intended for use in clinical monitoring or management of patients. It is not intended for use in employment-related testing. 6 REFERENCE VALUE Cutoff: 200 mg/L 7 Tylenol 3 8 Metabolite of codeine REFERENCE VALUE Cutoff: 100 9 Kim Barrett, Contin; Also a minor metabolite (10%) of codeine and can be seen in low concentrations (<2,000 ng/mL) with poppy seed ingestion. 10 Metabolite of morphine REFERENCE VALUE Cutoff: 100 11 Metabolite of heroin 12 Lortab, [place], Vicodin; Also a very minor metabolite of codeine and impurity (<1%) of oxycodone. 13 Metabolite of hydrocodone 14 Metabolite of hydrocodone 15 Dilaudid, Exalgo; Also a metabolite of hydrocodone and a minor (<5%) metabolite of morphine. 16 Metabolite of hydromorphone REFERENCE VALUE Cutoff: 100 17 Endocet, Percocet, Oxycontin 18 Metabolite of oxycodone 19 Numorphan, Opana; Also a metabolite of oxycodone. 20 Metabolite of oxymorphone REFERENCE VALUE Cutoff: 100 21 Metabolite of oxymorphone 22 Actiq, Duragesic, Fentora 23 Metabolite of fentanyl 24 Demerol 25 Metabolite of meperidine 26 Narcan 27 Metabolite of naloxone REFERENCE VALUE Cutoff: 100 28 Dolophine 29 Metabolite of methadone 30 Darvon, Darvocet 31 Metabolite of propoxyphene 32 Tradol, Ultram, Ultracet 33 Metabolite of tramadol 34 Nucynta 35 Metabolite of tapentadol 36 Metabolite of tapentadol REFERENCE VALUE Cutoff: 100 37 Buprenex, Suboxone 38 Metabolite of buprenorphine 39 Metabolite of buprenorphine 40 No opioids were detected. The absence of expected drug(s) and/or drug metabolite(s) may indicate non-compliance, altered pharmacokinetics, inappropriate timing of specimen collection relative to drug administration, diluted/adulterated urine, or limitations of testing. ADDITIONAL INFORMATION This test was developed and its performance characteristics determined by [facility] in a manner consistent with CLIA requirements. This test has not been cleared or approved by the U.S. Food and Drug Administration. Test Performed by: [facility] [address] [place] [address] 41 SCREEN NEGATIVE FOR OPEN NTD, DOWN SYNDROME AND TRISOMY 18. 42 Reference Range: <2.50 IDD <1.90 TWINS <4.00 TWINS IDD <3.50 TRIPLETS <4.50 43 This test was performed using a kit that has not been cleared or approved by the FDA. The analytical performance characteristics of this test have been determined by [facility]. This test should not be used for diagnosis without confirmation by other medically established means. 44 The Serum Integrated Screen combines LIANA-A in the first trimester with AFP, unconjugated estriol, intact hCG and Inhibin A in the second trimester. This provides a useful screening test for detection of open neural tube defects, Down syndrome and Trisomy 18. It should be noted that normal results can never guarantee the of a normal baby and that 2 to 3 percent of newborns have some type of physical or mental defect, many of which are undetectable through any known diagnostic technique. Interpretation reviewed by: Rico David, Ph.D., [facility]. 45 This is a screening test, not a diagnostic test. This risk assessment is based on demographic data provided by the ordering physician. Please notify the laboratory promptly if any data are incorrect. It has been observed that patients who smoke cigarettes during may have a slightly increased risk of having a false positive NORBERTO screen for Down Syndrome or trisomy 18. If you have questions concerning this report: For clinical consultation, call ; For technical questions, call ext [phone]; For recalculations, fax to . For additional information, please refer to http://LocaModa.Insight Ecosystems/faq/FAQ93 (This link is being provided for informational/educational purposes only.) 46 Test Not Performed. Incorrect test ordered. Please contact Client Services for further assistance in ordering the appropriate test code. [place] [address] 47 Reference Range: <2.50 IDD <1.90 TWINS <4.00 TWINS IDD <3.50 TRIPLETS <4.50 UNAVAILABLE 48 This test was performed using a kit that has not been cleared or approved by the FDA. The analytical performance characteristics of this test have been determined by [employer] [facility]. This test should not be used for diagnosis without confirmation by other medically established means. 49 For additional information, please refer to http://education.ePAR.Bjond/faq/FAQ94 (This link is provided for informational/educational purposes only.) This is a screening test, not a diagnostic test. This risk assessment is based on demographic data provided by the ordering physician. Please notify the laboratory promptly if any data are incorrect. It has been observed that patients who smoke cigarettes during may have a slightly increased risk of having a false positive NORBERTO screen for Down Syndrome or trisomy 18. If you have questions concerning this report: For clinical consultation, call ; For technical questions, call ext [phone]; For recalculations, fax to [phone]. 50 Thank you for submitting this patients Part 1 specimen. Please submit her Part 2 specimen between 04/09/2018-06/03/2018 (15.0 and 22.9 weeks gestation) with 04/09/2018-04/22/2018 (15.0 and 16.9 weeks gestation) being optimal. When submitting Part 2, please include the following Specimen # from Part 1: [id number] This test was developed and its analytical performance characteristics have been determined by [facility]. It has not been cleared or approved by FDA. This assay has been validated pursuant to the CLIA regulations and is used for clinical purposes. For additional information, please refer to http://LocaModa.Insight Ecosystems/faq/FAQ91 (This link is being provided for informational/educational purposes only.) It has been observed that patients who smoke cigarettes during may have a slightly increased risk of having a false positive NORBERTO screen for Down Syndrome or trisomy 18. If you have questions concerning this report: For clinical consultation, call ; For technical questions, call ext [phone]; For recalculations, fax to [phone]. 51 For additional information, please refer to http://LocaModa.[employer]s/faq/FAQ91 (This link is being provided for informational/educational purposes only.) It has been observed that patients who smoke cigarettes during may have a slightly increased risk of having a false positive NORBERTO screen for Down Syndrome or trisomy 18. If you have questions concerning this report: For clinical consultation, call ; For technical questions, call ext [phone]; For recalculations, fax to [phone]. 52 For additional information, please refer to http://LocaModa.Ins[employer]s/faq/FAQ91 (This link is being provided for informational/educational purposes only.) It has been observed that patients who smoke cigarettes during may have a slightly increased risk of having a false positive NORBERTO screen for Down Syndrome or trisomy 18. If you have questions concerning this report: For clinical consultation, call ; For technical questions, call ext [phone]; For recalculations, fax to [phone]. 53 For additional information, please refer to http://LocaModa.[employer]/faq/FAQ91 (This link is being provided for informational/educational purposes only.) It has been observed that patients who smoke cigarettes during may have a slightly increased risk of having a false positive NORBERTO screen for Down Syndrome or trisomy 18. If you have questions concerning this report: For clinical consultation, call ; For technical questions, call ext [phone]; For recalculations, fax to [phone]. 54 For additional information, please refer to http://Snatch that Jerky/faq/FAQ91 (This link is being provided for informational/educational purposes only.) It has been observed that patients who smoke cigarettes during may have a slightly increased risk of having a false positive NORBERTO screen for Down Syndrome or trisomy 18. If you have questions concerning this report: For clinical consultation, call ; For technical questions, call ext [phone]; For recalculations, fax to [phone]. 55 For additional information, please refer to http://Snatch that Jerky/faq/FAQ91 (This link is being provided for informational/educational purposes only.) It has been observed that patients who smoke cigarettes during may have a slightly increased risk of having a false positive NORBERTO screen for Down Syndrome or trisomy 18. If you have questions concerning this report: For clinical consultation, call ; For technical questions, call ext [phone]; For recalculations, fax to [phone]. 56 For additional information, please refer to http://LocaModa.Insight Ecosystems/faq/FAQ91 (This link is being provided for informational/educational purposes only.) It has been observed that patients who smoke cigarettes during may have a slightly increased risk of having a false positive NORBERTO screen for Down Syndrome or trisomy 18. If you have questions concerning this report: For clinical consultation, call ; For technical questions, call ext [phone]; For recalculations, fax to [phone]. 57 For additional information, please refer to http://Snatch that Jerky/faq/FAQ91 (This link is being provided for informational/educational purposes only.) It has been observed that patients who smoke cigarettes during may have a slightly increased risk of having a false positive NORBERTO screen for Down Syndrome or trisomy 18. If you have questions concerning this report: For clinical consultation, call ; For technical questions, call ext [phone]; For recalculations, fax to [phone]. 58 For additional information, please refer to http://LocaModa.Insight Ecosystems/faq/FAQ91 (This link is being provided for informational/educational purposes only.) It has been observed that patients who smoke cigarettes during may have a slightly increased risk of having a false positive NORBERTO screen for Down Syndrome or trisomy 18. If you have questions concerning this report: For clinical consultation, call ; For technical questions, call ext [phone]; For recalculations, fax to [phone]. 59 For additional information, please refer to http://LocaModa.Ins[employer]cosystems/faq/FAQ91 (This link is being provided for informational/educational purposes only.) It has been observed that patients who smoke cigarettes during may have a slightly increased risk of having a false positive NORBERTO screen for Down Syndrome or trisomy 18. If you have questions concerning this report: For clinical consultation, call ; For technical questions, call ext [phone]; For recalculations, fax to [phone]. 60 For additional information, please refer to http://LocaModa.Ins[employer]s/faq/FAQ91 (This link is being provided for informational/educational purposes only.) It has been observed that patients who smoke cigarettes during may have a slightly increased risk of having a false positive NORBERTO screen for Down Syndrome or trisomy 18. If you have questions concerning this report: For clinical consultation, call ; For technical questions, call ext [phone]; For recalculations, fax to [phone]. 61 For additional information, please refer to http://LocaModa.Ins[employer] Ecosystems/faq/FAQ91 (This link is being provided for informational/educational purposes only.) It has been observed that patients who smoke cigarettes during may have a slightly increased risk of having a false positive NORBERTO screen for Down Syndrome or trisomy 18. If you have questions concerning this report: For clinical consultation, call ; For technical questions, call ext [phone]; For recalculations, fax to [phone]. 62 For additional information, please refer to http://LocaModa.Ins[employer]s/faq/FAQ91 (This link is being provided for informational/educational purposes only.) It has been observed that patients who smoke cigarettes during may have a slightly increased risk of having a false positive NORBERTO screen for Down Syndrome or trisomy 18. If you have questions concerning this report: For clinical consultation, call ; For technical questions, call ext [phone]; For recalculations, fax to [phone]. 63 For additional information, please refer to http://LocaModa.Insight Ecosystems/faq/FAQ91 (This link is being provided for informational/educational purposes only.) It has been observed that patients who smoke cigarettes during may have a slightly increased risk of having a false positive NORBERTO screen for Down Syndrome or trisomy 18. If you have questions concerning this report: For clinical consultation, call ; For technical questions, call ext [phone]; For recalculations, fax to [phone]. 64 For additional information, please refer to http://LocaModa.Insight Ecosystems/faq/FAQ91 (This link is being provided for informational/educational purposes only.) It has been observed that patients who smoke cigarettes during may have a slightly increased risk of having a false positive NORBERTO screen for Down Syndrome or trisomy 18. If you have questions concerning this report: For clinical consultation, call ; For technical questions, call ext [phone]; For recalculations, fax to [phone]. 65 For additional information, please refer to http://Snatch that Jerky/faq/FAQ91 (This link is being provided for informational/educational purposes only.) It has been observed that patients who smoke cigarettes during may have a slightly increased risk of having a false positive NORBERTO screen for Down Syndrome or trisomy 18. If you have questions concerning this report: For clinical consultation, call ; For technical questions, call ext [phone]; For recalculations, fax to [phone]. 66 For additional information, please refer to http://Snatch that Jerky/faq/FAQ91 (This link is being provided for informational/educational purposes only.) It has been observed that patients who smoke cigarettes during may have a slightly increased risk of having a false positive NORBERTO screen for Down Syndrome or trisomy 18. If you have questions concerning this report: For clinical consultation, call ; For technical questions, call ext [phone]; For recalculations, fax to [phone]. 67 For additional information, please refer to http://Snatch that Jerky/faq/FAQ91 (This link is being provided for informational/educational purposes only.) It has been observed that patients who smoke cigarettes during may have a slightly increased risk of having a false positive NORBERTO screen for Down Syndrome or trisomy 18. If you have questions concerning this report: For clinical consultation, call ; For technical questions, call ext [phone]; For recalculations, fax to [phone]. 68 NEGATIVE; AT LEAST TWO COPIES OF THE SMN1 GENE DETECTED 69 This analysis identified at least two (2) copies of the SMN1 gene. This result does not rule out carrier status or a diagnosis of spinal muscular atrophy (SMA).* This testing cannot differentiate between individuals who have all copies of the SMN1 gene on one chromosome and NONE on the opposite chromosome as well as other mutations in the SMN1 gene. The risk for mutations that cause SMA other than the deletions tested depends greatly on family history and clinical presentation. Risk to be a carrier Ethnicity Detection Prior 2 SMN1 3 SMN1 rate carrier copy copy risk result result 95% 1 in 35 1 in 632 1 in 3500 Ashkenazi 90% 1 in 41 1 in 350 1 in 4000 Caodaism 93% 1 in 53 1 in 628 1 in 5000 71% 1 in 66 1 in 121 1 in 3000 Tajik 91% 1 in 117 1 in 1061 1 in 61191 SUPPLEMENTAL INFORMATION Spinal muscular atrophy (SMA) is a family of disorders that are characterized by progressive muscle weakness due to loss of anterior horn cells. A deletion of exon 7 in the SMN1 gene causes 95% of SMA. New mutations account for approximately 2% of SMA. SMN2 genes are able to produce a protein identical to that of the SMN1 gene, but at a reduced (10-20%) capacity. As a result the number of copies of SMN2 has been shown to influence the severity of the disease. This assay detects the copy number of the two common genes (SMN1 and SMN2) recommended by the [employer] [employer] ([employer]) for population-based SMA carrier screening. Health care providers, please contact your local [employer] genetic counselor or call [employer] Client Services at [phone] ([phone]) for assistance with the interpretation of these results. METHODOLOGY: The copy number of the SMA genes (SMN1 and SMN2) is detected by quantitative PCR. Although rare, false positive or false negative results may occur. All results should be interpreted in context of clinical findings, relevant history, and other laboratory data. Laboratory results and submitted clinical information reviewed by Fox Hylton, PhD, [facility], [facility]. This test was developed and its analytical performance characteristics have been determined by [employer] [facility]. It has not been cleared or approved by FDA. This assay has been validated pursuant to the CLIA regulations and is used for clinical purposes. 70 [id number] Therapeutic target for the treatment of diabetes mellitus patients is <7% HBA1C, and in selective patients <6.0%. Please refer to [place] [employer] diabetic care guidelines for further information. 72 [id number] Warning: A positive result is not useful for establishing a diagnosis of syphilis. In most situations, such a result may reflect a prior treated infection; a negative result can exclude a diagnosis of syphilis except for incubating or early primary disease. 74 It is recognized that currently available assays for the detection of antibodies to HIV-1 and/or HIV-2 may not detect all infected individuals. HIV antibodies may be undetectable in some stages of the infection and in some clinical conditions. The performance of this assay has not been established for populations of infants or children. Assayed by Chemiluminescence Microparticle Immunoassay on the Siemens Advia Centaur CP. Values obtained with different methods or kits cannot be used interchangeably.The diagnostic specificity of the ADVIA Centaur 1/O/2 Enhanced assay in the low risk population was 99.90% (6052/6058) with a 95% confidence interval of 99.78 to 99.96%. 75 ADDITIONAL INFORMATION Testing performed by Inductively Coupled Plasma-Mass Spectrometry (ICP-MS). This test was developed and its performance characteristics determined by [facility] in a manner consistent with CLIA requirements. This test has not been cleared or approved by the U.S. Food and Drug Administration. 76 Test Performed by: [facility] [address] [place] [address] 77 [id number] SEE RESULT BELOW Name: KASANDRA MOLINA : [address]: Evelina Mcmullen [facility] Acct: [id number] Unit: [id number] AGE: 32 Location: [facility] Re03/12/18 SEX: F Status: REG REF SPEC: [id number] CARLEY: 03/12/18-[address] [facility] [address]: Evelina LARA REQ: [id number] RECD: 03/12/18 STATUS: COMP _ SOURCE: URINE SPDESC: ORDERED: Urine Culture COMMENTS: [id number] Urine Source: Random Procedure Result Reported Site Urine Culture Final 03/13/18- 1250 ML No Growth (<1,000 CFU/mL) * - Main Lab . END OF REPORT DEPARTMENT OF PATHOLOGY, [address] [place] [address] Avel Hampton M.D. Director [facility] # [id number] 79 <5.0 Negative 5.0 - 25.0 Indeterminate (Repeat testing recommended after 72 hours) >25.0 Positive Perimenopausal women can display HCG levels of up to 20 mIU/mL 80 1 sst 81 CHOLESTEROL INTERPRETATION: Desirable: Less than 200 MG/DL Borderline-High Risk: 200-239 MG/DL High-Risk: 240 MG/DL and over 82 HDL INTERPRETATION: Undesirable: High Risk: Less than 40 MG/DL Desirable: Low Risk: Greater than 60 MG/DL 83 LDL INTERPRETATION: Low Risk Optimal Level: LDL Less than 100 MG/DL Near or Above Optimal: LDL 100-129 MG/DL Borderline High Risk: LDL 130-159 MG/DL High Risk: LDL 160-189 MG/DL Very High Risk: LDL Greater than 189 MG/DL 84 Test Performed by: [facility] Dpt of Lab Med and Pathology [address] [place] [address] Director Cardiac: Stef Nguyen III, M.D. 85 Test Performed by: [facility] Dpt of Lab Med and Pathology [address] [place] [address] Director Cardiac: Stef Nguyen III, M.D. 86 Test Performed by: [facility] Dpt of Lab Med and Pathology [address] [place] [address] Director Cardiac: Stef Nguyen III, M.D. 87 ---- RUN DATE: 07/15/09 [facility] NMI LIVE PAGE 1 RUN TIME: 1523 Specimen Inquiry RUN USER: INTERFACE -- Name: KASANDRA ARCEO Status: REG REF Re07/14/09 Age/Sex: 24/F Unit#: [id number] Location: [facility] : 85 -- Specimen: [id number] SOUT Spec Date: 07/14/[address]: Jelly miles CNM Spec Type: CYTOLOGY Received: 07/15/09-1053 Copies to: SOURCE ECTOCERVICAL/ENDOCERVICAL Thin Prep with Reflex HPV Test PATIENT INFORMATION ACTUAL COLLECTION DATE: 07/14/09 ? No LAST MENSTRUAL PERIOD: 07/11/09 DATE OF PRIOR SPECIMEN: 08/18/08 ADEQUACY OF SPECIMEN Satisfactory for evaluation * Transformation zone component identified * DIAGNOSIS NEGATIVE FOR INTRAEPITHELIAL LESION OR MALIGNANCY * This Pap test was evaluated with the assistance of the ThinPrep Pap Test Imaging System. The Pap Smear is a screening test designed to aid in the detection of premalign ant and malignant conditions of the uterine cervix. It is not a diagnostic procedure a nd should not be used as the sole means of detecting cervical cancer. Both false- positiv e and false-negative reports do occur. Depending on your risk status, a Pap smear tsering uld be obtained and evaluated every one to three years. Initial evaluation performed by Janeth TAYLOR(ASC) 07/15/09 Final Interpretation electronically signed by: Janeth TAYLOR(ASC) 07/15/09 1523 -- -- DEPARTMENT OF PATHOLOGY, [address] [place] [address] [facility] Permit #[id number] Brandon Zambrano M.D. Radio Survey Worker Dir lakesha -- 88 . A negative result does not preclude the presence of a C.trachomatis or N.gonorrhoeae infection because results are dependent on adequate specimen collection, absence of inhibitors, and sufficient rRNA to be detected. Test results may be affected by improper specimen collection, improper specimen storage, technical error, or specimen mixup. . 89 . A negative result does not preclude the presence of a C.trachomatis or N.gonorrhoeae infection because results are dependent on adequate specimen collection, absence of inhibitors, and sufficient rRNA to be detected. Test results may be affected by improper specimen collection, improper specimen storage, technical error, or specimen mixup. . 90 Warning: A positive result is not useful for establishing a diagnosis of syphilis. In most situations, such a result may reflect a prior treated infection; a negative result can exclude a diagnosis of syphilis except for incubating or early primary disease. 91 FINAL INTERPRETATION: No HIV antibody is detected. . This information has been disclosed to you from confidential records which are protected by [place] law. State law prohibits you from making further disclosure of this information without the specific written consent of the person to whom it pertains, or as otherwise permitted by law. Any unauthorized further disclosure in violation of state law may result in a fine or half-way sentence or both. General authorization for the release of medical or other information is not, except in limited circumstances set forth in Part 63, Title 10, of [facility], sufficient authorization for further disclosure. Disclosure of confidential HIV information that occurs as the result of a general authorization for the release of medical or other information will be in violation of the state law and may result in a fine or a half-way sentence. . 92 GENITAL-VAGINA/VULVA 93 NEGATIVE FOR HERPES SIMPLEX VIRUS. 94 PREADMISSION TESTING SAMPLES FOR BLOOD BANK WILL BE HELD FOR 14 DAYS FROM THE DATE OF COLLECTION *IF* THE FOLLOWING CRITERIA ARE MET: 1) THE PATIENT HAS *NOT* BEEN IN THE LAST 3 MONTHS. 2) THE PATIENT HAS *NOT* BEEN TRANSFUSED IN THE LAST 3 MONTHS. PREADMISSION TESTING SAMPLES WILL *NOT* BE HELD FOR 14 DAYS FROM PATIENTS WHO IN THE LAST 3 MONTHS: 1) HAVE BEEN 2) HAVE BEEN TRANSFUSED THESE PATIENTS *MUST* BE COLLECTED WITHIN 3 DAYS OF THE SURGERY DATE. 95 FINAL: NEGATIVE FOR GROUP B STREPTOCOCCUS 96 REFERENCE RANGE: 5-15 MG/DL ABOVE FASTING 97 REFERENCE RANGE: 20-50 MG/DL ABOVE FASTING 98 REFERENCE RANGE: FASTING OR 10 MG/DL BELOW 99 FINAL INTERPRETATION: No HIV antibody is detected. . This information has been disclosed to you from confidential records which are protected by [place] law. State law prohibits you from making further disclosure of this information without the specific written consent of the person to whom it pertains, or as otherwise permitted by law. Any unauthorized further disclosure in violation of state law may result in a fine or half-way sentence or both. General authorization for the release of medical or other information is not, except in limited circumstances set forth in Part 63, Title 10, of [facility], sufficient authorization for further disclosure. Disclosure of confidential HIV information that occurs as the result of a general authorization for the release of medical or other information will be in violation of the state law and may result in a fine or a half-way sentence. . 100 Reference range: IgG and IgM Index <0.9 Negative 0.9-1.1 Equivocal >1.1 Positive Interpretation: NEGATIVE: No antibody detected. This individual may be susceptible to parvovirus B-19 infection. POSITIVE: Indicative of exposure to parvovirus B-19. EQUIVOCAL results are those results too close to the cut-off values to interpret. A second sample should be drawn in two weeks, if clinically indicated. Specific IgG persists for years, and provides lifetime immunity. A majority of adults show evidence of past infection. If definitive diagnosis of acute parvovirus infection is desired, a parvovirus B-19 IgM should be obtained. Due to the poor humoral immune response in the immunocompromised, the chronically anemic, and the fetus, both antibody and DNA PCR tests are recommended for definitive diagnosis of parvovirus B-19 infection in these patients. 101 SPECIMEN CONTAINS NORMAL URETHRAL OR PERINEAL ERICKA AND DOES NOT SUGGEST URINARY TRACT INFECTION 102 ----- RUN DATE: 08/19/08 [facility] NMI LIVE PAGE 1 RUN TIME: 1116 Specimen Inquiry RUN USER: INTERFACE -- Name: KASANDRA ARCEO Status: REG REF Re08/18/08 Age/Sex: 23/F Unit#: [id number] Location: [facility] : 85 -- Specimen: [id number] Spec Date: 08/18/[address]: Evelina LARA Spec Type: CYTOLOGY Received: 08/19/08 Copies to: SOURCE ECTOCERVICAL/ENDOCERVICAL Thin Prep with Reflex HPV Test PATIENT INFORMATION ACTUAL COLLECTION DATE: 08/18/08 ? Yes DATE OF PRIOR SPECIMEN: 03/05/07 PATIENT HISTORY: Last menstrual period Unknown ADEQUACY OF SPECIMEN Satisfactory for evaluation * Transformation zone component identified * DIAGNOSIS NEGATIVE FOR INTRAEPITHELIAL LESION OR MALIGNANCY * This Pap test was evaluated with the assistance of the ThinPrep Pap Test Imaging System. The Pap Smear is a screening test designed to aid in the detection of premalign ant and malignant conditions of the uterine cervix. It is not a diagnostic procedure a nd should not be used as the sole means of detecting cervical cancer. Both false- positiv e and false-negative reports do occur. Depending on your risk status, a Pap smear tsering uld be obtained and evaluated every one to three years. Final Interpretation electronically signed by: Kristina RIVERA([facility]) 08/19/08 111 6 -- -- DEPARTMENT OF PATHOLOGY, [address] [place] [address] [facility] Permit #[id number] Avel Hampton M.D. Director Jessica Meyers M.D. Radio Survey Worker Dir lakes[employer] -- 103 . A negative result does not preclude the presence of a C.trachomatis or N.gonorrhoeae infection because results are dependent on adequate specimen collection, absence of inhibitors, and sufficient rRNA to be detected. Test results may be affected by improper specimen collection, improper specimen storage, technical error, or specimen mixup. . 104 . A negative result does not preclude the presence of a C.trachomatis or N.gonorrhoeae infection because results are dependent on adequate specimen collection, absence of inhibitors, and sufficient rRNA to be detected. Test results may be affected by improper specimen collection, improper specimen storage, technical error, or specimen mixup. . 105 ----- RUN DATE: 09/24/07 [facility] NMI LIVE PAGE 1 RUN TIME: 1519 Specimen Inquiry RUN USER: INTERFACE [id number] KASANDRA ARCEO <DIS IN 09/22> ([id number]) [id number] 3PD Holden GOLD, Trung Villagomez -- Specimen: [id number] SOUT Spec Date: 09/20/[address]: Moreno cristobal MD Spec Type: SURGICAL P Received: 09/20/07-0463 Copies to: SPECIMEN PLACENTA HISTORY PRE-OP DIAGNOSIS: Repeat GROSS DESCRIPTION The specimen is received in formalin labelled Kasandra Arceo, Placenta, and consists of a 628 gram placenta with attached cord and membranes. The placenta measures 19.5 x 15.0 cm. by up to 3.0 cm. and eccentrically inserted, 43.0 cm. by up to 1.0 cm., spiralled, yellow-white umbilical cord, which attaches 4.5 cm. from the placental margin and demonstrates three vessels on cut section. The surface is glistening and blue to tejeda. The maternal surface has normal cotyledons with a purple-red cut surface. The membranes are largely detached. The membranes are morse-yellow and focally demonstrate thickening and opacification. Junior Underwriter sections, two cassettes. DIAGNOSIS Uterus, placenta, section - A) Mature, third trimester placenta with three vessel cord and disrupted amnionic membranes. B) No evidence of acute chorioamnionitis, funisitis, nor meconium histiocytosis identified. Signed Electronically by: AVEL HAMPTON MD 09/24/07 1519 -- -- DEPARTMENT OF PATHOLOGY, [address] [place] [address] [facility] Permit #[id number] Avel Hampton M.D. Director of Laboratories -- 106 FINAL: NEGATIVE FOR GROUP B STREPTOCOCCUS 107 REFERENCE RANGE: FASTING OR 10 MG/DL BELOW 108 REFERENCE RANGE: 20-50 MG/DL ABOVE FASTING 109 REFERENCE RANGE: 5-15 MG/DL ABOVE FASTING 110 REFERENCE RANGE: 20-50 MG/DL ABOVE FASTING 111 REFERENCE RANGE: 5-15 MG/DL ABOVE FASTING 112 REFERENCE RANGE: FASTING OR 10 MG/DL BELOW 113 SCANT NORMAL URETHRAL OR PERINEAL ERICKA 10^1-10,000 ORGANISMS/ML (FEW)^CCU 114 Lymphopenia % 115 ----- RUN DATE: 03/08/07 [facility] NMI LIVE PAGE 1 RUN TIME: 920 Specimen Inquiry RUN USER: INTERFACE [id number] KASANDRA ARCEO <REG REF 03/04> ([id number]) Aniyah Lindsey CNP -- Specimen: [id number] SOUT Spec Date: 03/04/[address]: Aniyah Gottlieb mp, CNP Spec Type: CYTOLOGY Received: 03/06/07-1423 Copies to: SOURCE ECTOCERVICAL/ENDOCERVICAL Thin Prep with Reflex HPV Test PATIENT INFORMATION ACTUAL COLLECTION DATE: 03/04/07 ? YES PATIENT HISTORY: Last menstrual period patient thinks 12/21/2006 ADEQUACY OF SPECIMEN Satisfactory for evaluation * Transformation zone component identified * DIAGNOSIS NEGATIVE FOR INTRAEPITHELIAL LESION OR MALIGNANCY * This Pap test was evaluated with the assistance of the ThinPrep Pap Test Imaging System. The Pap Smear is a screening test designed to aid in the detection of premalign ant and malignant conditions of the uterine cervix. It is not a diagnostic procedure a nd should not be used as the sole means of detecting cervical cancer. Both false- positive and false-negative reports do occur. Depending on your risk status, a Pap smear tsering uld be obtained and evaluated every one to three years. Final Interpretation electronically signed by: Janeth TAYLOR([facility]) 03/08/07 0920 -- -- DEPARTMENT OF PATHOLOGY, [address] [place] [address] [facility] Permit #[id number] Avel Hampton M.D. Director of Laboratories Blade Andrade II, M.D . Pathologist -- 116 . A negative result does not preclude the presence of a C.trachomatis or N.gonorrhoeae infection because results are dependent on adequate specimen collection, absence of inhibitors, and sufficient rRNA to be detected. Test results may be affected by improper specimen collection, improper specimen storage, technical error, or specimen mixup. . 117 . A negative result does not preclude the presence of a C.trachomatis or N.gonorrhoeae infection because results are dependent on adequate specimen collection, absence of inhibitors, and sufficient rRNA to be detected. Test results may be affected by improper specimen collection, improper specimen storage, technical error, or specimen mixup. . 118 FINAL INTERPRETATION: No HIV antibody is detected. . This information has been disclosed to you from confidential records which are protected by [facility] law. State law prohibits you from making further disclosure of this information without the specific written consent of the person to whom it pertains, or as otherwise permitted by law. Any unauthorized further disclosure in violation of state law may result in a fine or half-way sentence or both. General authorization for the release of medical or other information is not, except in limited circumstances set forth in Part 63, Title 10, of [facility], sufficient authorization for further disclosure. Disclosure of confidential HIV information that occurs as the result of a general authorization for the release of medical or other information will be in violation of the state law and may result in a fine or a half-way sentence. . 119 . A negative result does not preclude the presence of a C.trachomatis or N.gonorrhoeae infection because results are dependent on adequate specimen collection, absence of inhibitors, and sufficient rRNA to be detected. Test results may be affected by improper specimen collection, improper specimen storage, technical error, or specimen mixup. . 120 . A negative result does not preclude the presence of a C.trachomatis or N.gonorrhoeae infection because results are dependent on adequate specimen collection, absence of inhibitors, and sufficient rRNA to be detected. Test results may be affected by improper specimen collection, improper specimen storage, technical error, or specimen mixup. . 121 SPECIMEN CONTAINS NORMAL URETHRAL OR PERINEAL ERICKA AND DOES NOT SUGGEST URINARY TRACT INFECTION 50^25-50,000 ORGANISMS/ML (MODERATE)^CCU 122 THERAPEUTIC TARGET FOR THE TREATMENT OF DIABETES MELLITUS PATIENTS IS <7% HBA1C, AND IN SELECTIVE PATIENTS <6.0%. PLEASE REFER TO [employer] DIABETIC CARE GUIDELINES FOR FURTHER INFORMATION. 123 FINAL: NEGATIVE FOR GROUP B STREPTOCOCCUS 124 REFERENCE RANGE: 5-15 MG/DL ABOVE FASTING 125 REFERENCE RANGE: FASTING OR 10 MG/DL BELOW 126 REFERENCE RANGE: 20-50 MG/DL ABOVE FASTING 127 THE [employer] RECOMMENDS THAT A THROAT CULTURE SHOULD BE PERFORMED IF A RAPID GROUP A STREP ASSAY YIELDS A NEGATIVE RESULT. N^NEGATIVE FOR GROUP A STREP BY ENZYME IMMUNOASSAY^STREPA 128 Anion gap measurement may be of limited value in the presence of any alkalosis, especially in a combined acid base disorder. . 129 Negative <0.9 Equivocal 0.9 - 1.1 Positive >1.1 130 Negative <0.9 Equivocal 0.9 - 1.1 Positive >1.1 Procedures Date Code Description Status 05/16/2018 89855 Echography Uterus Complete Completed 03/27/2018 03759 Nuchal Translucency Ultrasound /First Completed Gestation 03/12/2018 08940 Echography Uterus Limited Completed 02/01/2018 48966 OB Ultrasound First Trimester Completed 02/22/2016 89560 Insert Intrauterine Device Completed 06/11/2013 [id number] Mammogram Completed 06/08/2010 02998 Echography Transvaginal Completed 03/04/2009 57799 Delivery Only Completed 03/04/2009 49641 Delivery Routine Completed 02/24/2009 01411 Biophysical Profile W/ NST Completed 02/24/2009 80717 Biophysical Profile W/ NST Completed 02/16/2009 96181 Injection Intramuscular Or Subcutaneous Completed 02/16/2009 15798 Non-Stress Test Completed 02/08/2009 59852 Non-Stress Test Completed 02/01/2009 33317 Echography Uterus Follow-Up Or Repeat Completed 02/01/2009 28399 Non-Stress Test Completed 01/25/2009 56087 Non-Stress Test Completed 10/12/2008 15524 Echography Uterus Complete Completed 08/27/2008 84740 Nuchal Translucency Ultrasound /First Completed Gestation 09/20/2007 06150 Delivery Only Completed 09/20/2007 83982 Delivery Routine Completed 09/16/2007 58834 Non-Stress Test Completed 09/12/2007 60193 Non-Stress Test Completed 09/12/2007 04713 Non-Stress Test Completed 09/12/2007 14132 Non-Stress Test Completed 09/09/2007 14435 Biophysical Profile W/ NST Completed 09/09/2007 71827 Biophysical Profile W/ NST Completed 09/05/2007 36375 Echography Uterus Follow-Up Or Repeat Completed 09/05/2007 18284 Echography Uterus Follow-Up Or Repeat Completed 09/05/2007 06536 Non-Stress Test Completed 09/05/2007 72595 Non-Stress Test Completed 09/02/2007 38750 Non-Stress Test Completed 09/02/2007 27859 Non-Stress Test Completed 08/29/2007 49078 Non-Stress Test Completed 08/29/2007 55926 Non-Stress Test Completed 08/22/2007 43836 Non-Stress Test Completed 08/22/2007 14283 Non-Stress Test Completed 08/19/2007 25207 Non-Stress Test Completed 08/19/2007 45056 Non-Stress Test Completed 08/15/2007 18631 Biophysical Profile W/ NST Completed 08/15/2007 15378 Biophysical Profile W/ NST Completed 08/15/2007 75284 Non-Stress Test Completed 08/15/2007 03166 Non-Stress Test Completed 08/12/2007 82054 Non-Stress Test Completed 08/12/2007 74425 Non-Stress Test Completed 08/12/2007 02500 Non-Stress Test Completed 08/07/2007 97098 Non-Stress Test Completed 08/07/2007 61677 Non-Stress Test Completed 08/07/2007 16683 Non-Stress Test Completed 08/01/2007 53310 Non-Stress Test Completed 08/01/2007 21639 Non-Stress Test Completed 05/14/2007 45433 Echography Uterus Complete Completed 05/14/2007 93880 Echography Uterus Complete Completed 03/15/2007 22692 OB Ultrasound First Trimester Completed 03/15/2007 95318 OB Ultrasound First Trimester Completed 05/09/2006 48528 Care Only Completed 03/29/2006 13522 Delivery Routine Completed 03/28/2006 43691 Echography Uterus Limited Completed 03/26/2006 80311 Non-Stress Test Completed 03/21/2006 35387 Care Completed 03/14/2006 63243 Care Completed 03/07/2006 85701 Echography Uterus Complete Completed 02/21/2006 24926 Care Completed 02/07/2006 47431 Care Completed 01/24/2006 01143 Care Completed 01/12/2006 51813 Care Completed 12/28/2005 09244 Care Completed 12/22/2005 93285 Care Completed 11/20/2005 91830 Echography Uterus Complete Completed 10/23/2005 09771 Care Completed 10/06/2005 05169 Care Completed 09/11/2005 43322 Care Completed 08/28/2005 32765 Echography Uterus Complete Completed Encounters Type Date Location Provider Dx Diagnosis Office Visit 07/17/2018 [facility] Moreno EscobarValentina Bellkendrick, 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 Office Visit 02/01/2018 [facility] Moreno Hatch, O36.80x0 w 2:00p M.D. inconclusive viability, unsp Office Visit 01/29/2018 [facility] Office Moreno Hatch, O36.80x0 w 8:40a M.D. inconclusive viability, unsp Office Visit 02/22/2016 [facility] Office Magi Lea, Z30.430 Encounter for 3:00p MD insertion of intrauterine contraceptive device N76.1 Subacute and chronic vaginitis Z30.431 Encounter for routine checking of intrauterine contracep dev Office Visit 06/29/2010 8:30a [facility] Office Julia Womack 682.9 Cellulitis & MD Johan Abscess Unspec Site Office Visit 06/22/2010 2:30p [facility] Office Julia Womack 277.9 Metabolic Disorder MD Johan Unspec 256.4 Polycystic Ovaries Office Visit 05/25/2010 11:00a [facility] Office Julia Womack 626.8 Menstruation & MD Johan Other Abnormal Bleeding Disorders Other Office Visit 08/09/2009 9:20a [place] Office Dionna Schmidt 682.9 Cellulitis & Suite Q LUSTER APPLICATOR, CNM Abscess Unspec Site Office Visit 07/14/2009 10:20a [place] Office Jelly Be V72.31 Routine Kettle Skimmer Suite Q CNM Examination V74.5 Screening Examination Venereal Disease V25.09 Contraceptive Management Other V76.2 Screening Malignant Neoplasm Cervix V76.41 Screening Malignant Neoplasm Rectum Office Visit 06/23/2009 9:20a [place] [facility] Jelly Be, 616.11 Vaginitis & CNM Vulvovaginitis In Diseases Class Elsewhere V15.85 Personal History Of Contact & Exposure To Hazard Body Fluids V65.45 Counseling On Other Sexual Transmit Diseases V74.5 Screening Examination Venereal Disease v74.5 Screening Examination Venereal Disease Office Visit 02/24/2009 9:40a [facility] Office Suyra Ross, 648.80 Abnormal Glucose M.D. Tolerance Preg Episode Of Care Unsp Or N/A 654.23 Delivery Previous Antepartum Cond Or Compl 648.03 Diabetes Mellitus Antepartum Cond Or Compl Office Visit 08/18/2008 8:20a [facility] Office Myaleonel Mcmullen CNM V22.1 Supervison Of Normal Other v22.1 Supervison Of Normal Other V26.33 Genetic Counseling Office Visit 09/18/2007 1:00p [facility] Office Moreno Villagomez 648.03 Diabetes Mellitus Brandon Hatch Antepartum Cond Or Compl V22.1 Supervison Of Normal Other Office Visit 03/04/2007 2:00p [facility] Office Aniyah Singh V26.33 Genetic Counseling ANP-C V22.1 Supervison Of Normal Other Office Visit 08/07/2006 10:20a [facility] Office Flores Gutierrez V25.49 Contraceptive Other Brandon Sierra Method Surveillance V25.02 Contraceptive Measures Other Initiation V72.41 Test Negative V25.01 Oral Contraceptive Prescription Office Visit 04/23/2006 1:00p [facility] [facility] Javid Espionza, 599.9 Urethra & Urinary M.D. Tract Unspec Disorder Office Visit 04/09/2006 3:00p [facility] Office Javid Espinoza, 599.0 UTI Urinary Tract M.DValentina Infection Site Not Spec Plan of Treatment Future Appointment(s):09/24/2018 10:00 am - Magi Lea MD at [facility] 9:30 am - Magi Lea MD at [facility]09/10/2018 9:30 am - Magi Lea MD at [facility]08/28/2018 9:00 am - Reymundo Chahal MD at [facility]08/13/2018 1:00 pm - Moreno Hatch M.D. at [facility]2018 10:45 am - Magi Lea MD at [facility]07/17/2018 - Moreno Hatch M.D.[id number] Vulval varices
[2018-07-26 17:49] VITALS: BP 124/69
--- NOTE | 2018-07-26 18:02 | UC ---
Complaint Female HPI - HPI Summary HPI Summary: Pt presents with c/o of perineum pain that worsens with urination. Pt is 33 weeks and reports that she has not been sexually active for " long period of time" and had intercourse last evening. Pt states that hse woke with tenderness and tingling in perineum area that is pain ful all the time but worsens with urination. - History Of Current Complaint Chief Complaint: UCGU Stated Complaint: URINARY Time Seen by Provider: 07/26/18 17:53 Hx Obtained From: Patient Hx Last Menstrual Period: 12/2017 ?: No Onset/Duration: Sudden Onset, Lasting Days, Still Present Timing: Constant Severity Initially: Moderate Severity Currently: Moderate Pain Intensity: 8 Character: Dull, Burning Aggravating Factor(s): Urination Alleviating Factor(s): Nothing Associated Signs And Symptoms: Positive: Negative - Risk Factors Ectopic Risk Factor: Negative Ovarian Torsion Risk Factor: Reproductive Age - Allergies/Home Medications Allergies/Adverse Reactions: Allergies Allergy/AdvReac Type Severity Reaction Status Date / Time No Known Allergies Allergy Verified 07/26/18 17:49 Home Medications: Home Medications NK [No Home Medications Reported] 07/26/18 [History Confirmed 07/26/18] PMH/Surg Hx/FS Hx/Imm Hx Previously Healthy: Yes - Surgical History Surgical History: Yes Surgery Procedure, Year, and Place: (3) C-sections- [facility] [place]- 2005/2007/2008 - Family History Known Family History: Positive: Hypertension - parents Negative: Cardiac Disease, Diabetes - Social History Occupation: Employed Full-time Lives: With Family Alcohol Use: None Substance Use Type: None Smoking Status (MU): Former Smoker Type: Cigarettes Have You Smoked in the Last Year: No - Immunization History Vaccination Up to Date: Yes Review of Systems All Other Systems Reviewed And Are Negative: Yes Constitutional: Positive: Negative Skin: Positive: Negative Eyes: Positive: Negative ENT: Positive: Negative Respiratory: Positive: Negative Cardiovascular: Positive: Negative Gastrointestinal: Positive: Negative Genitourinary: Positive: Dysuria, Vaginal/Penile Burning, Vaginal/Penile Tenderness Motor: Positive: Negative Neurovascular: Positive: Negative Musculoskeletal: Positive: Negative Neurological: Positive: Negative Psychological: Positive: Negative Is Patient Immunocompromised?: No Physical Exam Triage Information Reviewed: Yes Appearance: Pain Distress Vital Signs: Initial Vital Signs Temp 98.2 F 07/26/18 17:44 Pulse 112 02/15/19 17:44 Resp 20 07/26/18 17:44 BP 124/69 07/26/18 17:44 Pulse Ox 100 07/26/18 17:44 Vital Signs Reviewed: Yes Eye Exam: Normal ENT Exam: Normal Dental Exam: Normal Neck exam: Normal Respiratory Exam: Normal Cardiovascular Exam: Normal Abdomen Description: Positive: Nontender Musculoskeletal Exam: Normal Neurological Exam: Normal Psychological Exam: Normal Skin Exam: Normal Complaint Female Dx - Course Course Of Treatment: Pt was advised to call OB substation design draftsperson and/or go directly to the closest ER for further evaluation and testing. - Differential Dx/Diagnosis Differential Diagnosis/HQI/PQRI: Pelvic Inflammatory Disease, Urinary Tract Infection Provider Diagnosis: Perineum pain, female Discharge - Sign-Out/Discharge Documenting (check all that apply): Patient Departure All imaging exams completed and their final reports reviewed: No Studies - Discharge Plan Condition: Stable Disposition: HOME-RECOMMEND TO ED Patient Education Materials: Pelvic Pain in Women (ED), Dysuria (ED) Referrals: Amanda Castano MD [Primary Care Provider] - Additional Instructions: IT IS MY RECOMMENDATION THAT YOU CONTACT YOUR OB PROVIDER SOON POSSIBLE. ADDITIONALLY, I RECOMMEND THAT YOU SEEK FURTHER EVALUATION AND TESTING AT A HIGHER LEVEL OF CARE FACILITY UPON LEAVING THIS FACILITY. - Billing Disposition and Condition Condition: STABLE Disposition: Home-Recommend to ED - Attestation Statements Provider Attestation: Per institutional requirements, I have reviewed the chart, however, I was not consulted specifically or made aware of this patient by the midlevel provider. I did not personally evaluate, interact with , or disposition this patient.
== END 2018-07-26 18:19 | disposition home health service (06) ==
LOC: UCCORT 16:48
DX: O99.89 Other specified diseases and conditions complicating pregnancy, childbirth and the puerperium (principal); R10.2 Pelvic and perineal pain; R30.0 Dysuria; N89.8 Other specified noninflammatory disorders of vagina; Z3A.33 33 weeks gestation of pregnancy; Z87.891 Personal history of nicotine dependence
CPT/HCPCS: 81003; 87086; 99212; G0463

== ENCOUNTER 2018-09-24 23:27 | Inpatient (IN) | payer OTHER ==
[~2018-09-24 23:27] MED LIST: Buffered Lidocaine 1% SYRIN* 1 ML/SYRINGE INTRADERM ONE
--- OUTSIDE RECORDS SUMMARY | 2018-09-24 23:33 | XMS REPORT | Continuity of Care Document ---
:1985 External Reference #:[id number] Author Name Montse Miranda Care Team Providers Name Role Phone Moreno Hatch M.D. 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 Payers Date Identification Numbers Payment Provider Subscriber Policy Number: [id number] [facility] Kasandra Molina PayID: [id number] [address] [place] [address] Policy Number: [id number] Medicaid [place] Kasandra Molina PayID: [id number] [address] [place] [address] Advance Directives Description No Information Available Problems Description No Information Family History Date Family Member(s) Observation Comments Father A&W Mother A&W First Son A&W Second Son A&W First Daughter A&W Number of Siblings Siblings: none Paternal Grandfather A&W Paternal Grandmother A&W Maternal Grandfather Hypertension Maternal Grandfather due to [place] () Maternal Grandmother due to Breast Cancer [...] Use Denies drug use Smoking Status Reviewed: 09/17/18 Patient is a former smoker Daily Caffeine Does not consume caffeine, stopped with due to n/v. Exercise Type/Frequency Exercises regularly Current Seat Belt/Car Seat Always uses a seat belt STD's No STD history CHERRY: 09/30/2018 Estimated Date of Based on 1st Delivery Ultrasound Allergies, Adverse Reactions, Alerts Description No Known Drug Allergies Medications Medication Date Status Form Strength Qnty SIG Indications Ordering Provider Ferrous 08/13 Active Tablets 324(38Fe) 60tab 1 by mouth Moreno Villagomez Gluconate mg s every day Brandon Hatchgiyue 03/[address] 10-10mg 60tab take 2 s tablets by Gilberto, mouth at [facility] bedtime, may add 1 tablet in morning and one midday if needed. PNV-Dha 03/12 Active Capsules 27-0.6-0. 30cap 1 by mouth Mya 4-300mg s every day Mcmullen, CNM Blood Glucose 03/12 Active Kit W/Device 1Moni use in in Mya Monitoring tor the morning Mcmullen, System before CN eating, then 2 hours after every meal Blood Glucose 03/12 Active Strips 1Box for use [facility] with blood Mcmullen, glucose CNM monitoring system. test 4x day as directed Lancets 03/12 Active Misc 100un for use Mya its with blood Mcmullen, glucose CNM monitor. use as directed four times a day Miconazole 7 08/05 Hx Cream 2% 45gm insert 1 applicator Xiomara, - full into [facility] 08/19 vagina at bedime for 7 nights Nitrofurantoin 07/29 Hx Capsules 100mg 14cap tab 1 by Mya Monohydrate/Valente s mouth twice Benedict, ocrystals - a day [facility] 08/06 Cephalexin 07/26 Hx Capsules 500mg 14cap take one by s mouth twice Gilberto, - daily for 7 CNM Valium 12/27 Hx Tablets 5mg 3tabs 1 po prior Megan to Bridgette - procedure [employer] [facility] 01/29 prn, nte tab daily Naproxen 11/11 Hx Tablets 500mg 1 by mouth R51 Megan, twice a day Bridgette - with food [employer] 01/29 Acetaminophen-Co 11/11 Hx Tablets 300-30mg 90tab 1-2 every 8 R51 Megankishor # s hours as Bridgette - needed for [facility] 01/29 Prozac 06/09 Hx Capsules 20mg 90cap 1 by mouth [facility], s every day Bridgette - [facility] [employer] 02/21 Topamax 06/09 Hx Tablets 50mg 90tab 1 by mouth F41.1 [facility], s once a day Bridgette - [facility] 02/21 Bupropion HCL ER 12/01 Hx Tablets ER 150mg 90tab 1 by mouth F41.9 [facility], (XL) 24HR s every day Bridgette - [facility] 03/12 Reyna 03/05 Hx Tablets 3-0.03mg 3tabs take one Z30.9 [facility], tablet by Bridgette - mouth every [employer] Sherlyn 06/22 Hx Tablets 3-0.03mg 1pack uase as Julia directed Shanta Johan, 02/21 Cephalexin 06/22 Hx Tablets 500mg 21tab 1 tablet Julia s every [facility] Johan, 02/21 Ortho Tri-Cyclen 01/10 Hx Tablets 0.18/0.21 1pack 1po qd 5/0.25 Michaelle, - mg-3 M 02/21 Keflex 08/09 Hx Capsules 500mg 14cap one tab bid s x 7 days Roxana MORGAN, - CN 02/21 Metronidazole 06/23 Hx Tablets 500mg 14tab 1 po bid x s 7 days [place], - CNM 06/11 Diflucan 06/23 Hx Tablets 150mg 2tabl 1 tablet ets today. mr x [place], - 3 days if CN 06/11 symptoms persist. Vernell 28 06/09 Hx Tablets 3-0.03mg 3tabs 1 po qd,please [place], - substitute CNM 01/10 Prenate Dha 03/02 Hx Capsules 27-0.6-0. 30cap 1 po qd 4-30 s Benedict, - CNM 06/11 Anusol-HC 02/26 Hx Cream 2.5% 1Tube apply 3xd prn Michaelle, - CNM 03/10 Prenate Dha 08/18 Hx Capsules 30cap 1 po qd s Benedict - CNM 03/02 Ortho Tri-Cyclen 12/08 Hx Tablets 1Pack 1 po qd Moreno A. /2007 Gelkendrick - M.DValentina 08/18 Nor Q D 11/20 Hx 28uni 1 PO qd Moreno A. /2007 ts Isis - M.DValentina 12/08 Humulin N 03/04 Hx Injection 100Units/ 10ml 2 units Moreno AValentina /2006 ML subcutaneou Isis, - s nph at M.D. 03/10 bedtime Insulin Syringes 03/04 Hx 100un use as Moreno Villagomez /2006 its directed Shivam Hatch M.DValentina 03/10 Ortho Tri-Cyclen 08/07 Hx Tablets 0.035mg;0 3Mont 1 po qd Flores Gutierrez /2006 .18mg;0.0 hs Rigo - Alexandre M.DValentina 03/04 Precare Premier 05/09 Hx 100un 1 PO qd Flores Gutierrez /2005 its Shivam Sierra.Aniket 11/04 Ampicillin 04/09 Hx Capsules 250mg 40cap One Tab 4X Javid Ramirez s Per Day Shivam Espinoza MJose 05/09 Lo-Dose Ultra 03/14 Hx 100un to use bid Flores Gutierrez Fine Insulin /2005 its as directed Gokul Sierra - M.DValentina 05/09 Diphenhydramine 02/07 Hx Tablets 25mg 30tab 1-2 tablets s po hs prn Benedict - CNM 05/09 Ucose Meter 01/02 Hx use qid for [place]aga Cedillo /2005 bs C.N.M. - monitoring 01/02 One Touch Ulta 01/02 Hx 100un to use qid Flores Gutierrez Glucose Meter /2005 its for bs Rigo - monitoring M.D. 05/09 One Touch Ultra 01/02 Hx 100un To Use qid Naga Cedillo Strips its For BS C.N.M. - Testing 05/09 Accu-Check 12/29 Hx 1unit use as Dionna Compact /2005 s directed Roxana MORGAN, Glucometer - [facility] 11/04 Accu-check 12/29 Hx to use qid Mya Compact Glucose /2005 for bs Benedict Glucometer - testing [facility] 07/04 Accu-Check 12/29 Hx 100un to use qid Dionna Compact Test /2005 its as directed Roxana BUILDING SPECIALIST, Strips - [facility] 11/04 Accu-Check 12/29 Hx 100un as directed Dionna Compact Lancets /2005 its Roxana BUILDING SPECIALIST, - [facility] 11/04 Terazol 3 10/06 Hx Cream 0.8% 1 Mya Applicator Benedict, - Per Vagina [facility] 05/09 hs X3 Promethazine 09/11 Hx Tablets 25mg 10tab Take one Flores Valentina s tablet Sierra, - every 8 hrs M.D. 05/09 as needed /2005 for nausea. 08/16 Hx Tablets 30tab 1 po qd Moreno Villagomez Vitamins s Isis, - M.D. 08/18 [place] 08/08 Hx Tablets 120mg;200 90tab Kamryn mg s Stephan - C.N.M. 08/16 Humulin N 08/08 Hx Injection 100Units/ 10ml 2 units Flores Gutierrez ML subcutaneou Shivam Sierra s each am M.D. 05/09 and each qd Low Dose Ulta 08/08 Hx 100un to use for Flores Suarez its bid as Sierra, Syringes - directed M.D. 03/14 Omeprazole Hx Capsules 20mg 90cap 1 by mouth Megan, /0000 DR turner every day Bridgette - ELISEO 02/21 Vitamin B-12 Hx Tablets 1000mcg 1 by mouth Unknown /0000 every other - day- 03/12 nald Calcium 600+D Hx Tablets 600-400mg one by Unknown /0000 -Unit mouth three - times a 02/21 day- /Christie Padilla Fluoxetine HCL Hx Unknown (PMDD) /0000 - 01/29 Multivitamin 00/00 Hx Unknown - 01/29 Calcium + D3 00/ Hx Unknown /0000 - 03/12 Magnesium 00/ Hx Unknown /0000 - 03/12 Vitamin Hx Unknown / - 03/12 Medications Administered in Office Medication Date Status Form Strength Qnty SIG Indications Ordering Provider PT SCRN Tbco Administered Injection Moreno Oscar as Non User 019 Brandon Hatch PT SCRN Tbco Administered Injection Moreno Oscar as Non User 018 Brandon Hatch PT SCRN Tbco Administered Injection Moreno Oscar as Non User 018 Brandon Hatch Immunizations CPT Code Status Date Vaccine Lot # [id number] Given 06/18/2018 Tetnus, Diptheria Toxoids And Acellular Pertussis, [id number] PT > 7Yrs Old [address] Given 02/16/2009 Influenza Virus Vaccine 3Years Or Older Vital Signs Date Vital Result Comment 03/12/2018 10:01am BP Systolic 118 mmHg BP Diastolic 70 mmHg Height 63 inches 5'3" Weight 195.00 lb BMI (Body Mass Index) 34.5 kg/m2 Last Menstrual Period 0653011 4 Parity 3 02/01/2018 2:27pm BP Systolic 122 mmHg BP Diastolic 72 mmHg Height 63 inches 5'3" Weight 201.00 lb BMI (Body Mass Index) 35.6 kg/m2 Last Menstrual Period 0850380 4 Parity 3 01/29/2018 8:29am BP Systolic 118 mmHg BP Diastolic 72 mmHg Height 63 inches 5'3" Weight 200.00 lb BMI (Body Mass Index) 35.4 kg/m2 Last Menstrual Period 9311850 4 Parity 3 02/22/2016 3:06pm BP Systolic 112 mmHg BP Diastolic 80 mmHg Height 63 inches 5'3" Weight 163.00 lb BMI (Body Mass Index) 28.9 kg/m2 Last Menstrual Period 6836505 3 Parity 3 12/28/2015 1:04pm BP Systolic [...] mmHg Weight 203.00 lb Last Menstrual Period 1576913 3 Parity 3 06/22/2010 2:28pm BP Systolic 160 mmHg Pt advised to monitor bp's and contact pcp BP Diastolic 100 mmHg Pt advised to monitor bp's and contact pcp Weight 205.00 lb 05/25/2010 10:49am BP Systolic 138 mmHg BP Diastolic 82 mmHg Body Temperature 98.8 F Weight 207.00 lb Last Menstrual Period 9754140 3 Parity 3 08/09/2009 9:26am BP Systolic 118 mmHg BP Diastolic 70 mmHg Body Temperature 96.4 F Weight 175.00 lb 07/14/2009 10:16am BP Systolic 108 mmHg BP Diastolic 60 mmHg Height 62.5 inches 5'2.50" Weight 178.00 lb BMI (Body Mass Index) 32.0 kg/m2 Last Menstrual Period 1138555 2 Parity 2 06/23/2009 9:21am BP Systolic [...] mmHg Weight 190.00 lb Last Menstrual Period [id number] 1 04/23/2006 12:56pm BP Systolic 128 mmHg BP Diastolic 70 mmHg Height 63 inches 5'3" Weight 190.00 lb BMI (Body Mass Index) 33.7 kg/m2 04/09/2006 2:55pm BP Systolic 128 mmHg BP Diastolic 70 mmHg Height 64 inches 5'4" Weight 197.31 lb BMI (Body Mass Index) 33.9 kg/m2 Results Test Date Facility Test Result H/L Range Note CBC With No 08/28/2018 [facility] White Blood 8.3 10^3/uL N 3.5-10.8 [place] [address] Count [phone] Red Blood Count 3.77 10^6/uL N 3.70-4.87 Hemoglobin 10.4 g/dL Low 12.0-16.0 Hematocrit 32 % Low 33-41 Mean Corpuscular Volume 84 fL N 80-97 Mean Corpuscular Hemoglobin 28 pg N 27-31 Mean Corpuscular HGB Conc 33 g/dL N 31-36 Red Cell Distribution Width 16 % High 10.5-15 Platelet Count 198 10^3/uL N 150-450 Mean Platelet Volume 9.4 fL N 7.4-10.4 Laboratory test 08/28/2018 [facility] Genital For GRP B SEE RESULT 1 [place] [address] Strep Only BELOW [phone] Urine Culture And 07/29/2018 [facility] Urine Culture SEE RESULT 2 [place] [address] BELOW [phone] Serum Integrated 04/23/2018 [facility] Interpretation SEE BELOW 3 Screen Part 2 ND Risk For Ontd <1:5000 Age Risk Down Syndrome 1:460 NORBERTO Down Syndrome Risk 1:2800 <1:270 NORBERTO Trisomy 18 Risk <1:5000 <1:100 Calculated Gestational Age 17.0 Afp,Serum 30.1 ng/mL Afp Mom 1.01 4 HCG,Serum 70.2 IU/mL HCG Mom 3.05 Estriol,Free 1.36 ng/mL Estriol Mom 1.56 Inhibin A,Dimeric 364 pg/mL Inhibin A Mom 2.59 Liana-A 1151.9 ng/mL 5 Liana-A Mom 1.66 6 Referring Physician Name DONALDBER Referring Physician Phone NOT GIVEN Referring Physician Npi NOT GIVEN Specimen # From Part 1 SEE NOTE Date Of 1985 Collection Date 04/23/2018 Maternal Weight 214 lbs Est'd Date Of Delivery 10/01/2018 Mother's Ethnic Origin Insulin Depend Diabetic N Repeat Specimen N Number Of Fetuses 1 HX Of Neural Tube Defects N Cigarette Smoker NOT GIVEN 7 Urine Drug 04/23/2018 [facility] Urine Amphetamine Negative ng/ mL 8 Comp 20 [place] [address] [phone] Urine Barbiturates Negative ng/mL 9 Urine Benzodiazepines Negative ng/mL 10 Urine Cocaine Negative ng/mL 11 Urine Phencyclidine Negative ng/mL Cutoff: 25 Urine Tetrahydrocannabinol Negative ng/mL Cutoff: 50 12 Creatinine, Urine 219.6 mg/dL Specific [place] 1.025 pH 5.8 Oxidants Negative 13 Adulterants Comment Normal Codeine, Ur Not Detected ng/mL Cutoff: 25 14 Dmfuoer-7-sgxi-glucuronide, Ur Not Detected ng/mL 15 Morphine, Ur Not Detected ng/mL Cutoff: 25 16 Govushml-8-qqrz-glucuronide, U Not Detected ng/mL 17 6-monoacetylmorphine, Ur Not Detected ng/mL Cutoff: 25 18 Hydrocodone, Ur Not Detected ng/mL Cutoff: 25 19 Norhydrocodone, Ur Not Detected ng/mL Cutoff: 25 20 Dihydrocodeine, Ur Not Detected ng/mL Cutoff: 25 21 Hydromorphone, Ur Not Detected ng/mL Cutoff: 25 22 Cpqqfflfonllm6qwexnhswpbnzjck Not Detected ng/mL 23 Oxycodone, Ur Not Detected ng/mL Cutoff: 25 24 Noroxycodone, Ur Not Detected ng/mL Cutoff: 25 25 Oxymorphone, Ur Not Detected ng/mL Cutoff: 25 26 Bazbtczbsls-0-bpxi-glucuronide Not Detected ng/mL 27 Noroxymorphone, Ur Not Detected ng/mL Cutoff: 25 28 Fentanyl, Ur Not Detected ng/mL Cutoff: 2 29 Norfentanyl, Ur Not Detected ng/mL Cutoff: 2 30 Meperidine, Ur Not Detected ng/mL Cutoff: 25 31 Normeperidine, Ur Not Detected ng/mL Cutoff: 25 32 Naloxone, Ur Not Detected ng/mL Cutoff: 25 33 Ruxdvojs-6-luxv-glucuronide, U Not Detected ng/mL 34 Methadone, Ur Not Detected ng/mL Cutoff: 25 35 Eddp, Ur Not Detected ng/mL Cutoff: 25 36 Propoxyphene, Ur Not Detected ng/mL Cutoff: 25 37 Norpropoxyphene, Ur Not Detected ng/mL Cutoff: 25 38 Tramadol, Ur Not Detected ng/mL Cutoff: 25 39 O-desmethyltramadol, Ur Not Detected ng/mL Cutoff: 25 40 Tapentadol, Ur Not Detected ng/mL Cutoff: 25 41 N-desmethyltapentadol, Ur Not Detected ng/mL Cutoff: 50 42 Wkpntpuwzy-cucj-kwqfzexbjmk, U Not Detected ng/mL 43 Buprenorphine, Ur Not Detected ng/mL Cutoff: 5 44 Norbuprenorphine, Ur Not Detected ng/mL Cutoff: 5 45 Norbuprenorphine glucuronide Not Detected ng/mL Cutoff: 20 46 Opioid Interpretation See Comment 47 Sequential Integreated SCRN 2 ND 04/23/2018 [facility] Interpretation SEE BELOW 48 Risk For Ontd UNAVAILABLE Age Risk Down Syndrome UNAVAILABLE NORBERTO Down Syndrome Risk UNAVAILABLE <1:270 NORBERTO Trisomy 18 Risk UNAVAILABLE <1:100 Calculated Gestational Age UNAVAILABLE Afp,Serum UNAVAILABLE ng/mL Afp Mom SEE BELOW 49 HCG,Serum UNAVAILABLE IU/mL HCG Mom UNAVAILABLE Estriol,Free UNAVAILABLE ng/mL Estriol Mom UNAVAILABLE Inhibin A,Dimeric UNAVAILABLE pg/mL Inhibin A Mom UNAVAILABLE Liana-A UNAVAILABLE ng/mL 50 Liana-A Mom UNAVAILABLE NT Mom UNAVAILABLE Referring Physician Name NOT GIVEN Referring Physician Phone NOT GIVEN Referring Physician Npi NOT GIVEN Specimen # From Part 1 NOT GIVEN Date Of 1985 Collection Date 04/23/2018 Maternal Weight 214 lbs Est'd Date Of Delivery NOT GIVEN Nuchal Translucency NOT GIVEN mm [place] Length NOT GIVEN mm Ultrasound Date NOT GIVEN Nasal Bone NG Mother's Ethnic Origin NOT GIVEN Insulin Depend Diabetic NOT GIVEN Repeat Specimen NOT GIVEN Number Of Fetuses NOT GIVEN HX Of Neural Tube Defects NOT GIVEN Cigarette Smoker NOT GIVEN Twin B Nasal Bone NG 51 GC/Chlamydia Dna 03/27/2018 [facility] Chlamydia [place] [address] trachomatis Rna [phone] Neisseria gonorrhoeae (GC) Rna Negative Negative Serum Integrated SCRN Part 1 [place] 03/27/2018 [facility] Comment SEE BELOW 52 Referring Physician Name ISIS 53 Referring Physician Phone NG 54 Referring Physician Npi NG 55 Date Of 1985 56 Collection Date 03/27/2018 57 Maternal Weight 195 lbs 58 Est'd Date Of Delivery 10/01/2018 59 CHERRY Determined By US 60 Mother's Ethnic Origin C 61 Number Of Fetuses 1 62 Insulin Depend Diabetic N 63 Repeat Specimen N 64 HX Of Neural Tube Defects N 65 Prev Down Synd N 66 Donor Egg N 67 Donor Age:Egg Retrieval N/A 68 Cigarette Smoker NG 69 Spinal Muscular Atrophy 03/27/2018 [facility] Technical Results NEGATIVE Negative 70 SMN1 2 COPIES SMN2 2 COPIES Interpretation SEE BELOW 71 PNL No 03/27/2018 [facility] Rubella Screen Immune Immune 72 [place] [address] [phone] Hemoglobin A1c 5.2 % N 4.0-5.6 73 Hepatitis B Surface Ag Nonreactive Nonreactive 74 Syphillis Igg W/Reflex RPR Nonreactive Nonreactive 75 CBC With No 03/27/2018 [facility] White Blood 8.9 10^3/uL N 3.5-10.8 [place] [address] Count [phone] Red Blood Count 4.02 10^6/uL N 4.00-5.40 [...] um3 N 7.4-10.4 Type And Screen 03/27/2018 [facility] Patient Blood Type O Positive [place] [address] [phone] Antibody Screen NEGATIVE HIV 1/2 AB 03/27/2018 [facility] HIV 1 2 Nonreactive Nonreactive 76 Evaluation RALPH Ray [address] Antibody [phone] Lead 03/27/2018 [facility] Lead,Venous, < 1.0 g/dL 0.0-4.9 77 [place] [address] B [phone] Venous/Capillary Venous Submitting Laboratory Phone [phone] Laboratory test 03/27/2018 [facility] TSH 1.18 N 0.34-5.60 79 finding [place] [address] mcIU/mL [phone] Urine Culture And 03/12/2018 [facility] Urine Culture SEE RESULT 80 Sensitivities RALPH Ray [address] BELOW [phone] Laboratory test 01/29/2018 [facility] HCG 5628.00 81 finding [place] [address] mIU/mL [phone] Comprehensive 12/01/2014 N2N/CCD Import A/G Ratio 1.5 [...] 3.6-9.6 Laboratory test 12/01/2014 N2N/CCD Import C-Reactive 7.5 mg/L High 0.0- 5.0 82 finding Protein Laboratory test 06/08/2010 [facility] TSH 1.13 0.34-5.60 [place] [address] MIU/ML [phone] Dhea 13 ng/mL Abnormal <13 83 Lipid And 06/08/2010 [facility] Glucose 121 mg/dL High 70-100 [place] [address] [phone] Lipid Profile 06/08/2010 [facility] Triglyceride 60 mg/dL 40- 200 (Trig/Chol/HDL) [place] [address] [phone] Cholesterol 190 mg/dL Less Than 200 84 High Density Lipoprotein 59 mg/dL 40-60 85 Cholesterol/HDL Ratio 3.22 AVERAGE 1-4.44 Low Density Lipoprotein 119 mg/dL High Less Than 100 86 CBC With 06/08/2010 [facility] White Blood 5.7 CUMM 4.8-10.8 [place] [address] Count [phone] Red Cell Count 4.21 CUMM 4.2-5.4 Hemoglobin [...] Abs Basophils 0 0-0.2 Testosterone Free 06/08/2010 [facility] Free 0.7 ng/dL 0.3- 1.9 87 & [place] [address] Testosterone [phone] Total Testosterone 46 ng/dL 8-60 88 Laboratory 07/14/2009 [facility] Cytology 89 [place] [address] <SEE NOTE> [phone] GC/Chlyamdia 07/14/2009 [facility] CHL On Thin NEGATIVE Negative 90 [place] [address] Prep Vial Vial [phone] GC On Thin Prep Vial NEGATIVE Negative 91 Culture,HSV,Rapid W/Typ 06/23/2009 [facility] GENITAL-VAGINA/V <SEE NOTE > 92 HSV Culture (SEE NOTE) 93 Vad 06/23/2009 [facility] Vad Final NONREACTIVE Nonreactive 94 [place] [address] [phone] Laboratory 06/23/2009 [facility] Syphilis NON-REACTIVE Nonreactive 95 [place] [address] IgG [phone] CBC With 03/03/2009 [facility] White Blood 15.6 CUMM High 4.8- 10.8 [place] [address] Count [phone] Red Cell Count 3.66 CUMM Low 4.2-5.4 [...] Platelet Evaluation LARGE Type And Screen 03/03/2009 [facility] Patient [place] [address] [phone] Antibody Screen NEGATIVE Specimen Discard Date 03/17/09 96 Laboratory test 02/16/2009 [facility] Genital For GRP NG2 [address] [place] [address] B Strep Only [phone] Laboratory test 12/28/2008 [facility] 2HR Glucose 142 mg/dL 98 [address] [place], [place] [address]70 [phone] 1HR Glucose 151 mg/dL 99 Fasting Glucose 97 mg/dL 70-110 3HR Glucose 103 mg/dL 100 1 TS 08/18/2008 [facility] Patient [place] [address] [phone] Antibody Screen NEGATIVE Vad 08/18/2008 [facility] Vad Final NONREACTIVE Nonreactive 101 [place], [place] [address] [phone] Parvovirus 08/18/2008 [facility] Parvovirus 0.1 index <0.9 102 B19 AB B19 AB (Igm) (Igg,M) Parvovirus B19 AB (Igg) 4.2 index High <0.9 Urine Culture & 08/18/2008 [facility] Urine Culture NF1 [address] [place] [address] Sensitivi [phone] 1 08/18/2008 [facility] White Blood 6.5 CUMM 4.8-10 [place] [address] Count .8 [phone] Red Cell Count 3.99 CUMM Low 4.2-5.4 [...] Ag NEGATIVE Negative Rubella Screen IMMUNE Immune GC/ZHL On Thin 08/18/2008 [facility] GC On Thin NEGATIVE Negative [address] [place] [address] Prep Vial [phone] CHL On Thin Prep Vial NEGATIVE Negative 105 Laboratory test 08/18/2008 [facility] Cytology [address] [place] [address] <SEE NOTE> [phone] Pathology/Surgi 09/20/2007 [facility] Surgical [address] [place] [address] Pathology <SEE NOTE> [phone] Urinalysis 09/16/2007 [facility] Ua Color YELLOW W/[place] [address] [phone] Appearance-Urine HAZY Bacteria-Urine 3+ Bilirubin-Ur NEGATIVE Negative Blood-Urine NEGATIVE Negative Epith Cells-Ur MODERATE Esterase-Urine NEGATIVE Negative Glucose-Urine NEGATIVE Negative Ketones-Urine 2+ Abnormal Negative Mucus Urine MODERATE Nitrite NEGATIVE Negative PH-Urine 5.0 5-9 Protein-Urine 1+ Abnormal Negative RBC-Urine 0-2 0-2 Yvcthcigtkpd-Sl-COK NEGATIVE Negative Specific [place]-Ur 1.027 1.010-1.030 WBC-Urine 2-5 0-5 Laboratory test 08/29/2007 [facility] Genital For FINAL: [address] [place] [address] GRP B Strep NEGATIVE <SEE [phone] Only NOTE> Liver Function 08/05/2007 [facility] Albumin/Globu 1.1 1-3 [place] [address] bria Ratio [phone] Albumin 3.0 GM/DL Low 3.6-5.4 Alkaline Phosphatase 133 U/L High 30-110 Alt (SGPT) 23 U/L 14-54 Ast (Sgot) 18 U/L 12-42 Bilirubin Direct < 0.1 mg/dL Low 0.1-0.5 Globulin 2.7 GM/DL 2-4 Bilirubin Total 0.4 mg/dL 0.4-1.5 Total Protein 5.7 GM/DL Low 6.2-8.1 Renal Function Panel 08/05/2007 [facility] BUN 7 mg/dL 6-24 [place], [place] [id number] [phone] Calcium 9.5 mg/dL 8.7-10.2 Chloride 105 mmol/L 101-111 Co2 (Carbon Dioxide) 25.0 mmol/L 22-32 Glucose 173 mg/dL High 70-105 Potassium 4.3 mmol/L 3.5-5.0 Sodium 137 mmol/L 135-145 Phosphorus 4.6 mg/dL 2.4-4.7 BUN/Creatinine Ratio 8.8 8-20 Creatinine 0.8 mg/dL 0.5-1.4 Total Protein 24HR 08/05/2007 [facility] Total Protein RD 9 mg/ [place] [address] Urine OB Pat [phone] Urine Total Protein/24HR 220 MG/24HR High 0-165 Creatinine 08/05/2007 [facility] Creatinine Random 65.3 mg/[place] [address] Urine [phone] Serum Creatinine/Creat CL 0.8 mg/dL 0.5-1.4 Creat Clearance 139 mL/min High 80-125 Hours Of Collection 24 HR 24- Urine Volume Measurement 2450 ML Laboratory test 08/05/2007 [facility] Uric Acid 4.6 mg/dL 2.6 -7.2 finding [place], [place] [address] [phone] CBC With 08/05/2007 [facility] White Blood 11.7 CUMM High 4.8- 10.8 [place] [address] Count [phone] Abs Basophils 0 0-0.2 Abs Eosinophils 0.2 [...] WDTH 14 % 10.5-15 Laboratory test 07/03/2007 [facility] 3HR Glucose 149 mg/dL [address] [place] [address] [phone] 1HR Glucose 196 mg/dL 110 Fasting Glucose 95 mg/dL 70-110 2HR Glucose 160 mg/dL 111 Laboratory test 04/24/2007 [facility] Fasting 89 mg/dL 70- [address] [place] [address] Glucose [phone] 1HR Glucose 137 mg/dL 112 2HR Glucose 118 mg/dL 113 3HR Glucose 62 mg/dL 114 Urine Culture 03/05/2007 [facility] Urine Culture SCANT NORMAL [address] [place] [address] Sensitivi URE <SEE [phone] NOTE> 1 03/05/2007 [facility] Hepatitis [place] [address] Surface Ag [phone] Rubella Screen IMMUNE Immune White Blood Count 10.5 CUMM 4.8-10.8 Abs Basophils 0 0-0.2 Abs Eosinophils 0.2 0-0.6 Absolute Neutrophil Count 7.7 1.5-7.7 Abs Lymphs 2.0 1.0-4.8 Abs Mononuclear 0.7 0-0.8 Basophil % 0.4 % 0-2 Hematocrit 39 % 35-47 116 Hemoglobin 13.2 g/dL 12.0-16.0 Eosinophil % 1.5 [...] 10.5-15 RPR NON REACTIVE Nonreactive Laboratory 03/05/2007 [facility] Cytology normal 117 test finding [place] [address] <SEE NOTE> [phone] GC/ZHL On 03/05/2007 [facility] CHL On Thin NEGATIVE Negative [address] [place] [address] Prep Vial [phone] GC On Thin Prep Vial NEGATIVE Negative 119 Vad 03/05/2007 [facility] Vad Final NONREACTIVE Nonreactive 120 [place] [address] [phone] TS 03/04/2007 [facility] [place] [address] Blood Type [phone] Antibody Screen NEGATIVE GC/Chlamydia Dna 05/09/2006 [facility] CHL By NEGATIVE Negative [address] [place] [address] Aptima [phone] GC By Aptima NEGATIVE Negative 122 Laboratory test 04/09/2006 [facility] Urine Culture SPECIMEN [address] [place] [address] Sensitivi CONTAIN <SEE [phone] NOTE> Laboratory test 03/07/2006 [facility] Hemoglobin A1c 6.0 % < 6.0 [address] [place] [address] [phone] Genital For GRP B Strep Only FINAL: NEGATIVE <SEE NOTE> 125 Laboratory test 12/22/2005 [facility] Fasting 95 mg/dL 70- [address] [place] [address] Glucose [phone] 2HR Glucose 167 mg/dL 126 3HR Glucose 127 mg/dL 127 1HR Glucose 169 mg/dL 128 Laboratory test 09/28/2005 [facility] Rapid Strep A THE COMORAN [address] [place] [address] ROCK <SEE NOTE> [phone] Basic Metabolic 09/28/2005 [facility] One Over 1.[address] [place] [address] Creatinine [phone] Anion Gap 10.0 mmol/L 2-11 130 BUN 4 mg/dL Low 6-24 Calcium 9.4 mg/dL 8.7-10.2 Chloride 102 mmol/L 101-111 Co2 (Carbon Dioxide) 21.0 mmol/L Low 22-32 Glucose 97 mg/dL 70-105 Potassium 3.4 mmol/L Low 3.5-5.0 Sodium 133 mmol/L Low 135-145 BUN/Creatinine Ratio 6.7 Low 8-20 Creatinine 0.6 mg/dL 0.5-1.4 Parvovirus B19, 08/08/2005 [facility] Parvovirus B19, IgG 6.1 index High 0.0 -0.8 131 Human, Igg/Igm Parvovirus B19, IgM 0.4 index 0.0-0.8 132 1 SEE RESULT BELOW Name: KASANDRA MOLINA Homa : [address]: Reymundo Chahal MD Acct: [id number] Unit: [id number] AGE: 33 Location: [facility] Re08/28/18 SEX: F Status: REG REF SPEC: [id number] CARLEY: 08/28/18-[address]: Reymundo Chahal MD REQ: [id number] RECD: 08/28/18 STATUS: COMP _ SOURCE: CER/VAG/RE SPDESC: ORDERED: Ericka Johnson COMMENTS: [id number] QUERIES: Is Patient Penicillin Allergic? N Is patient penicillin allergic and/or sensitivities needed? N Provider Requisition # [id number]_ Procedure Result Reported Site Group B Strep Culture Screen Final 08/30/18- 857 ML Group B Strep Screen Negative * ML - Main Lab . END OF REPORT DEPARTMENT OF PATHOLOGY, [address] [place] [address] Avel Hampton M.D. Director [facility] # [id number] 2 SEE RESULT BELOW Name: KASANDRA MOLINA : [address]: Evelina Mcmullen [facility] Acct: [id number] Unit: [id number] AGE: 33 Location: [facility] Re07/29/18 SEX: F Status: REG REF SPEC: [id number] CARLEY: 07/29/[address]: Evelina LARA REQ: [id number] RECD: 07/29/18 STATUS: COMP _ SOURCE: URINE SPDESC: ORDERED: Urine Culture COMMENTS: [id number] Urine Source: Random Procedure Result Reported Site Urine Culture Final 07/30/18- 1202 ML No Growth (<1,000 CFU/mL) * ML - Main Lab . END OF REPORT DEPARTMENT OF PATHOLOGY, [address] [place] [address] Avel Hampton M.D. Director [facility] # [id number] 3 SCREEN NEGATIVE FOR OPEN NTD, DOWN SYNDROME AND TRISOMY 18. 4 Reference Range: <2.50 IDD <1.90 TWINS <4.00 TWINS IDD <3.50 TRIPLETS <4.50 5 This test was performed using a kit that has not been cleared or approved by the FDA. The analytical performance characteristics of this test have been determined by [facility]. This test should not be used for diagnosis without confirmation by other medically established means. 6 The Serum Integrated Screen combines LIANA-A in [...] technique. Interpretation reviewed by: Rico David, Ph.D., [facility]. 7 This is a screening test, not a [...] call ; For technical questions, call ext [phone]; For recalculations, fax to . For additional information, please refer to http://education.Collecta/faq/FAQ93 (This link is being provided for informational/educational purposes only.) 8 REFERENCE VALUE Cutoff: 500 9 REFERENCE VALUE Cutoff: 200 10 REFERENCE VALUE Cutoff: 100 11 REFERENCE VALUE Cutoff: 150 12 ADDITIONAL INFORMATION This report is intended for use in clinical monitoring or management of patients. It is not intended for use in employment-related testing. 13 REFERENCE VALUE Cutoff: 200 mg/L 14 Tylenol 3 15 Metabolite of codeine REFERENCE VALUE Cutoff: 100 16 Kim Barrett, Contin; Also a minor metabolite (10%) of codeine and can be seen in low concentrations (<2,000 ng/mL) with poppy seed ingestion. 17 Metabolite of morphine REFERENCE VALUE Cutoff: 100 18 Metabolite of heroin 19 Lortab, [place], Vicodin; Also a very minor metabolite of codeine and impurity (<1%) of oxycodone. 20 Metabolite of hydrocodone 21 Metabolite of hydrocodone 22 Dilaudid, Exalgo; Also a metabolite of hydrocodone and a minor (<5%) metabolite of morphine. 23 Metabolite of hydromorphone REFERENCE VALUE Cutoff: 100 24 Endocet, Percocet, Oxycontin 25 Metabolite of oxycodone 26 Numorphan, Opana; Also a metabolite of oxycodone. 27 Metabolite of oxymorphone REFERENCE VALUE Cutoff: 100 28 Metabolite of oxymorphone 29 Actiq, Duragesic, Fentora 30 Metabolite of fentanyl 31 Demerol 32 Metabolite of meperidine 33 Narcan 34 Metabolite of naloxone REFERENCE VALUE Cutoff: 100 35 Dolophine 36 Metabolite of methadone 37 Darvon, Darvocet 38 Metabolite of propoxyphene 39 Tradol, Ultram, Ultracet 40 Metabolite of tramadol 41 Nucynta 42 Metabolite of tapentadol 43 Metabolite of tapentadol REFERENCE VALUE Cutoff: 100 44 Buprenex, Suboxone 45 Metabolite of buprenorphine 46 Metabolite of buprenorphine 47 No opioids were detected. The absence of expected drug(s) and/or drug metabolite(s) may indicate non-compliance, altered pharmacokinetics, inappropriate timing of specimen collection relative to drug administration, diluted/adulterated urine, or limitations of testing. ADDITIONAL INFORMATION This test was developed and its performance characteristics determined by [facility] in a manner consistent with CLIA requirements. This test has not been cleared or approved by the U.S. Food and Drug Administration. Test Performed by: [facility] [address] [place] [address] 48 Test Not Performed. Incorrect test ordered. Please contact Client Services for further assistance in ordering the appropriate test code. [place] [address] 49 Reference Range: <2.50 IDD <1.90 TWINS <4.00 TWINS IDD <3.50 TRIPLETS <4.50 UNAVAILABLE 50 This test was performed using a kit that has not been cleared or approved by the FDA. The analytical performance characteristics of this test have been determined by [facility]. This test should not be used for diagnosis without confirmation by other medically established means. 51 For additional information, please refer to http://education.Collecta/faq/FAQ94 (This link is provided for informational/educational purposes [...] call ext [phone]; For recalculations, fax to [phone]. 52 Thank you for submitting this patients Part 1 specimen. Please submit her Part 2 specimen between 04/09/2018-06/03/2018 (15.0 and 22.9 weeks gestation) with 04/09/2018-04/22/2018 (15.0 and 16.9 weeks gestation) being optimal. When submitting Part 2, please include the following Specimen # from Part 1: [id number] This test was developed and its analytical performance characteristics have been determined by [facility]. It has not been cleared or approved by FDA. This assay has been validated pursuant to the CLIA regulations and is used for clinical purposes. For additional information, please refer to http://[employer].Collecta/faq/FAQ91 (This link is being provided for informational/educational purposes only.) It has been observed that patients who smoke cigarettes during may have a slightly increased risk of having a false positive NORBERTO screen for Down Syndrome or trisomy 18. If you have questions concerning this report: For clinical consultation, call ; For technical questions, call ext [phone]; For recalculations, fax to [phone]. 53 For additional information, please refer to http://[employer].Collecta/faq/FAQ91 (This link is being provided for informational/educational purposes only.) It has been observed that patients who smoke cigarettes during may have a slightly increased risk of having a false positive NORBERTO screen for Down Syndrome or trisomy 18. If you have questions concerning this report: For clinical consultation, call ; For technical questions, call ext [phone]; For recalculations, fax to [phone]. 54 For additional information, please refer to http://[employer].Collecta/faq/FAQ91 (This link is being provided for informational/educational purposes only.) It has been observed that patients who smoke cigarettes during may have a slightly increased risk of having a false positive NORBERTO screen for Down Syndrome or trisomy 18. If you have questions concerning this report: For clinical consultation, call ; For technical questions, call ext [phone]; For recalculations, fax to [phone]. 55 For additional information, please refer to http://[employer].Collecta/faq/FAQ91 (This link is being provided for informational/educational purposes only.) It has been observed that patients who smoke cigarettes during may have a slightly increased risk of having a false positive NORBERTO screen for Down Syndrome or trisomy 18. If you have questions concerning this report: For clinical consultation, call ; For technical questions, call ext [phone]; For recalculations, fax to [phone]. 56 For additional information, please refer to http://[employer].Collecta/faq/FAQ91 (This link is being provided for informational/educational purposes only.) It has been observed that patients who smoke cigarettes during may have a slightly increased risk of having a false positive NORBERTO screen for Down Syndrome or trisomy 18. If you have questions concerning this report: For clinical consultation, call ; For technical questions, call ext [phone]; For recalculations, fax to [phone]. 57 For additional information, please refer to http://TopCoder/faq/FAQ91 (This link is being provided for informational/educational purposes only.) It has been observed that patients who smoke cigarettes during may have a slightly increased risk of having a false positive NORBERTO screen for Down Syndrome or trisomy 18. If you have questions concerning this report: For clinical consultation, call ; For technical questions, call ext [phone]; For recalculations, fax to [phone]. 58 For additional information, please refer to http://TopCoder/faq/FAQ91 (This link is being provided for informational/educational purposes only.) It has been observed that patients who smoke cigarettes during may have a slightly increased risk of having a false positive NORBERTO screen for Down Syndrome or trisomy 18. If you have questions concerning this report: For clinical consultation, call ; For technical questions, call ext [phone]; For recalculations, fax to [phone]. 59 For additional information, please refer to http://[employer].Collecta/faq/FAQ91 (This link is being provided for informational/educational purposes only.) It has been observed that patients who smoke cigarettes during may have a slightly increased risk of having a false positive NORBERTO screen for Down Syndrome or trisomy 18. If you have questions concerning this report: For clinical consultation, call ; For technical questions, call ext [phone]; For recalculations, fax to [phone]. 60 For additional information, please refer to http://TopCoder/faq/FAQ91 (This link is being provided for informational/educational purposes only.) It has been observed that patients who smoke cigarettes during may have a slightly increased risk of having a false positive NORBERTO screen for Down Syndrome or trisomy 18. If you have questions concerning this report: For clinical consultation, call ; For technical questions, call ext [phone]; For recalculations, fax to [phone]. 61 For additional information, please refer to http://TopCoder/faq/FAQ91 (This link is being provided for informational/educational purposes only.) It has been observed that patients who smoke cigarettes during may have a slightly increased risk of having a false positive NORBERTO screen for Down Syndrome or trisomy 18. If you have questions concerning this report: For clinical consultation, call ; For technical questions, call ext [phone]; For recalculations, fax to [phone]. 62 For additional information, please refer to http://TopCoder/faq/FAQ91 (This link is being provided for informational/educational purposes only.) It has been observed that patients who smoke cigarettes during may have a slightly increased risk of having a false positive NORBERTO screen for Down Syndrome or trisomy 18. If you have questions concerning this report: For clinical consultation, call ; For technical questions, call ext [phone]; For recalculations, fax to [phone]. 63 For additional information, please refer to http://TopCoder/faq/FAQ91 (This link is being provided for informational/educational purposes only.) It has been observed that patients who smoke cigarettes during may have a slightly increased risk of having a false positive NORBERTO screen for Down Syndrome or trisomy 18. If you have questions concerning this report: For clinical consultation, call ; For technical questions, call ext [phone]; For recalculations, fax to [phone]. 64 For additional information, please refer to http://TopCoder/faq/FAQ91 (This link is being provided for informational/educational purposes only.) It has been observed that patients who smoke cigarettes during may have a slightly increased risk of having a false positive NORBERTO screen for Down Syndrome or trisomy 18. If you have questions concerning this report: For clinical consultation, call ; For technical questions, call ext [phone]; For recalculations, fax to [phone]. 65 For additional information, please refer to http://TopCoder/faq/FAQ91 (This link is being provided for informational/educational purposes only.) It has been observed that patients who smoke cigarettes during may have a slightly increased risk of having a false positive NORBERTO screen for Down Syndrome or trisomy 18. If you have questions concerning this report: For clinical consultation, call ; For technical questions, call ext [phone]; For recalculations, fax to [phone]. 66 For additional information, please refer to http://TopCoder/faq/FAQ91 (This link is being provided for informational/educational purposes only.) It has been observed that patients who smoke cigarettes during may have a slightly increased risk of having a false positive NORBERTO screen for Down Syndrome or trisomy 18. If you have questions concerning this report: For clinical consultation, call ; For technical questions, call ext [phone]; For recalculations, fax to [phone]. 67 For additional information, please refer to http://TopCoder/faq/FAQ91 (This link is being provided for informational/educational purposes only.) It has been observed that patients who smoke cigarettes during may have a slightly increased risk of having a false positive NORBERTO screen for Down Syndrome or trisomy 18. If you have questions concerning this report: For clinical consultation, call ; For technical questions, call ext [phone]; For recalculations, fax to [phone]. 68 For additional information, please refer to http://[employer].Collecta/faq/FAQ91 (This link is being provided for informational/educational purposes only.) It has been observed that patients who smoke cigarettes during may have a slightly increased risk of having a false positive NORBERTO screen for Down Syndrome or trisomy 18. If you have questions concerning this report: For clinical consultation, call ; For technical questions, call ext [phone]; For recalculations, fax to [phone]. 69 For additional information, please refer to http://[employer].Collecta/faq/FAQ91 (This link is being provided for informational/educational purposes only.) It has been observed that patients who smoke cigarettes during may have a slightly increased risk of having a false positive NORBERTO screen for Down Syndrome or trisomy 18. If you have questions concerning this report: For clinical consultation, call ; For technical questions, call ext [phone]; For recalculations, fax to [phone]. 70 NEGATIVE; AT LEAST TWO COPIES OF THE SMN1 GENE DETECTED 71 This analysis identified at least two (2) [...] 41 1 in 350 1 in 4000 Taoism 93% 1 in 53 1 in 628 1 in 5000 71% 1 in 66 1 in 121 1 in 3000 Angolan 91% 1 in 117 1 in 1061 1 in [address]753 SUPPLEMENTAL INFORMATION Spinal muscular atrophy (SMA) is [...] genes (SMN1 and SMN2) recommended by the [place] [employer] (ACMG) for population-based SMA carrier screening. Health care providers, please contact your local [facility] genetic counselor or call [facility] at [employer] ([phone]) for assistance with the interpretation of these results. METHODOLOGY: The copy number of the SMA genes (SMN1 and SMN2) is detected by quantitative PCR. Although rare, false positive or false negative results may occur. All results should be interpreted in context of clinical findings, relevant history, and other laboratory data. Laboratory results and submitted clinical information reviewed by Fox Hylton, PhD, [facility], [facility]. This test was developed and its analytical performance characteristics have been determined by [facility]. It has not been cleared or approved by FDA. This assay has been validated pursuant to the CLIA regulations and is used for clinical purposes. 72 [id number] 73 Therapeutic target for the treatment of diabetes mellitus patients is <7% HBA1C, and in selective patients <6.0%. Please refer to [place] [employer] diabetic care guidelines for further information. 74 [id number] 75 Warning: A positive result is not useful for establishing a diagnosis of syphilis. In most situations, such a result may reflect a prior treated infection; a negative result can exclude a diagnosis of syphilis except for incubating or early primary disease. 76 It is recognized that currently available assays [...] 95% confidence interval of 99.78 to 99.96%. 77 ADDITIONAL INFORMATION Testing performed by Inductively Coupled Plasma-Mass Spectrometry (ICP-MS). This test was developed and its performance characteristics determined by [facility] in a manner consistent with CLIA requirements. This test has not been cleared or approved by the U.S. Food and Drug Administration. 78 Test Performed by: [facility] - [address] [address] 79 [id number] SEE RESULT BELOW Name: KASANDRA MOLINA : [address]: Evelina Mcmullen [facility] Acct: [id number] Unit: [id number] AGE: 32 Location: [facility] Re03/12/18 SEX: F Status: REG REF SPEC: [id number] CARLEY: 03/12/18-[address] [place] [address] DR: Evelina Mcmullen [facility] REQ: [id number] RECD: 03/12/18 STATUS: COMP _ SOURCE: URINE [facility]: ORDERED: Urine Culture COMMENTS: [id number] Urine Source: Random Procedure Result Reported Site Urine Culture Final 03/13/18- 1250 ML No Growth (<1,000 CFU/mL) * ML - Main Lab . END OF REPORT DEPARTMENT OF PATHOLOGY, [address] [place] [address] Avel Hampton M.D. Director [facility] # [id number] <5.0 Negative 5.0 - 25.0 Indeterminate (Repeat testing recommended after 72 hours) >25.0 Positive Perimenopausal women can display HCG levels of up to 20 mIU/mL 82 1 sst 83 Test Performed by: [facility] Dpt of Lab Med and Pathology [address] [place] [address] Decorative Engraver Apprentice: Stef Nguyen III, M.D. 84 CHOLESTEROL INTERPRETATION: Desirable: Less than 200 MG/DL Borderline-High Risk: 200-239 MG/DL High-Risk: 240 MG/DL and over 85 HDL INTERPRETATION: Undesirable: High Risk: Less than 40 MG/DL Desirable: Low Risk: Greater than 60 MG/DL 86 LDL INTERPRETATION: Low Risk Optimal Level: LDL Less than 100 MG/DL Near or Above Optimal: LDL 100-129 MG/DL Borderline High Risk: LDL 130-159 MG/DL High Risk: LDL 160-189 MG/DL Very High Risk: LDL Greater than 189 MG/DL 87 Test Performed by: [facility] Dpt of Lab Med and Pathology [address] [place] [address] Decorative Engraver Apprentice: Stef Nguyen III, M.D. 88 Test Performed by: [facility] Dpt of Lab Med and Pathology [address] [place] [address] Decorative Engraver Apprentice: Stef Nguyen III, M.D. 89 ---- RUN DATE: 07/15/09 [facility] NMI LIVE PAGE 1 RUN TIME: 1523 Specimen Inquiry RUN USER: INTERFACE -- Name: KASANDRA ARCEO Status: REG REF Re07/14/09 Age/Sex: 24/F Unit#: [id number] [facility] -- Specimen: [id number] Spec Date: 07/14/[address]: Jelly miles [...] was evaluated with the assistance of the [employer] SurgicalPrep Pap Test Imaging System. The Pap Smear [...] 07/15/09 1523 -- -- DEPARTMENT OF PATHOLOGY, [address] [place] [address] [facility] Permit #[id number] Avel Hampton M.D. Director Jessica Meyers M.D. Natural Resource Officer Dir [employer] -- 90 . A negative result does not preclude the presence of a C.trachomatis or N.gonorrhoeae infection because results are dependent on adequate specimen collection, absence of inhibitors, and sufficient rRNA to be detected. Test results may be affected by improper specimen collection, improper specimen storage, technical error, or specimen mixup. . 91 . A negative result does not preclude the presence of a C.trachomatis or N.gonorrhoeae infection because results are dependent on adequate specimen collection, absence of inhibitors, and sufficient rRNA to be detected. Test results may be affected by improper specimen collection, improper specimen storage, technical error, or specimen mixup. . 92 GENITAL-VAGINA/VULVA 93 NEGATIVE FOR HERPES SIMPLEX VIRUS. 94 FINAL INTERPRETATION: No HIV antibody is detected. . This information has been disclosed to you from confidential records which are protected by [facility] law. State law prohibits you from making further disclosure of this information without the specific written consent of the person to whom it pertains, or as otherwise permitted by law. Any unauthorized further disclosure in violation of state law may result in a fine or long term sentence or both. General authorization for the release of medical or other information is not, except in limited circumstances set forth in Part 63, Title 10, of [facility], sufficient authorization for further disclosure. Disclosure of confidential HIV information that occurs as the result of a general authorization for the release of medical or other information will be in violation of the state law and may result in a fine or a long term sentence. . 95 Warning: A positive result is not useful for establishing a diagnosis of syphilis. In most situations, such a result may reflect a prior treated infection; a negative result can exclude a diagnosis of syphilis except for incubating or early primary disease. 96 PREADMISSION TESTING SAMPLES FOR BLOOD BANK WILL [...] WITHIN 3 DAYS OF THE SURGERY DATE. 97 FINAL: NEGATIVE FOR GROUP B STREPTOCOCCUS 98 REFERENCE RANGE: 5-15 MG/DL ABOVE FASTING 99 REFERENCE RANGE: 20-50 MG/DL ABOVE FASTING 10 REFERENCE RANGE: FASTING OR 10 MG/DL BELOW 0 10 FINAL INTERPRETATION: 1 No HIV antibody is detected. . This information has been disclosed to you from confidential records which are protected by [place] State law. State law prohibits you from making further disclosure of this information without the specific written consent of the person to whom it pertains, or as otherwise permitted by law. Any unauthorized further disclosure in violation of state law may result in a fine or long term sentence or both. General authorization for the release of medical or other information is not, except in limited circumstances set forth in Part 63, Title 10, of [facility], sufficient authorization for further disclosure. Disclosure of confidential HIV information that occurs as the result of a general authorization for the release of medical or other information will be in violation of the state law and may result in a fine or a long term sentence. . 10 Reference range: IgG and IgM Index 2 <0.9 Negative 0.9-1.1 Equivocal >1.1 Positive Interpretation: [...] of parvovirus B-19 infection in these patients. 10 SPECIMEN CONTAINS NORMAL URETHRAL OR PERINEAL ERICKA 3 AND DOES NOT SUGGEST URINARY TRACT INFECTION 10 . 4 A negative result does not preclude the presence of a C.trachomatis or N.gonorrhoeae infection because results are dependent on adequate specimen collection, absence of inhibitors, and sufficient rRNA to be detected. Test results may be affected by improper specimen collection, improper specimen storage, technical error, or specimen mixup. . 10 . 5 A negative result does not preclude the presence of a C.trachomatis or N.gonorrhoeae infection because results are dependent on adequate specimen collection, absence of inhibitors, and sufficient rRNA to be detected. Test results may be affected by improper specimen collection, improper specimen storage, technical error, or specimen mixup. . 10 ---- 6 RUN DATE: 08/19/08 [facility] NMI LIVE PAGE 1 RUN TIME: 1116 Specimen Inquiry RUN USER: INTERFACE -- Name: KASANDRA ARCEO Status: REG REF Re08/18/08 Age/Sex: 23/F Unit#: [id number] Location: [facility]. : 85 -- Specimen: [id number] [facility] Spec Date: 08/18/[address]: Evelina lyman [facility] Spec Type: CYTOLOGY Received: 08/19/08 Copies to: [...] years. Final Interpretation electronically signed by: Kristina RIVERA(ASCP) 08/19/08 111 6 -- -- DEPARTMENT OF PATHOLOGY, [address] [place] [address] [facility] Permit #[id number] Brandon Zambrano M.D. Natural Resource Officer [place] -- 10 ---- 7 RUN DATE: 09/24/07 [facility] NMI LIVE PAGE 1 RUN TIME: 9737 Specimen Inquiry RUN USER: INTERFACE [id number] KASANDRA ARCEO 22/ <DIS IN 09/22> [id number] 3PD Isis GOLD, Trung Villagomez -- Specimen: [id number] Spec Date: 09/20/[address]: Moreno cristobal MD Spec Type: SURGICAL P Received: 09/20/07-0009 Copies to: SPECIMEN PLACENTA HISTORY PRE-OP DIAGNOSIS: [...] morse-yellow and focally demonstrate thickening and opacification. Lock Setter sections, two cassettes. DIAGNOSIS Uterus, placenta, section - A) Mature, third trimester placenta with three vessel cord and disrupted amnionic membranes. B) No evidence of acute chorioamnionitis, funisitis, nor meconium histiocytosis identified. Signed Electronically by: AVEL HAMPTON MD 09/24/07 1519 -- -- DEPARTMENT OF PATHOLOGY, [address] [place] [address] [facility] Permit #[id number] Avel Hampton M.D. Director of [employer] -- 10 FINAL: NEGATIVE FOR GROUP B STREPTOCOCCUS 8 10 REFERENCE RANGE: FASTING OR 10 MG/DL BELOW 9 11 REFERENCE RANGE: 20-50 MG/DL ABOVE FASTING 0 11 REFERENCE RANGE: 5-15 MG/DL ABOVE FASTING 1 11 REFERENCE RANGE: 20-50 MG/DL ABOVE FASTING 2 11 REFERENCE RANGE: 5-15 MG/DL ABOVE FASTING 3 11 REFERENCE RANGE: FASTING OR 10 MG/DL BELOW 4 11 SCANT NORMAL URETHRAL OR PERINEAL ERICKA 5 10^1-10,000 ORGANISMS/ML (FEW)^CCU 11 Lymphopenia % 6 11 ---- 7 RUN DATE: 03/08/07 [facility] NMI LIVE PAGE 1 RUN TIME: 920 Specimen Inquiry RUN USER: INTERFACE [id number] KASANDRA ARCEO / <REG REF 03/04> ([id number]) RSP Aniyah Singh CNP -- Specimen: [id number] SOUT Spec Date: 03/04/07 [facility] Dr: Aniyah Gottlieb [facility] Spec Type: CYTOLOGY Received: 03/06/07-1423 Copies to: SOURCE ECTOCERVICAL/ENDOCERVICAL Thin Prep with Reflex HPV Test PATIENT INFORMATION ACTUAL COLLECTION DATE: 03/04/07 ? YES PATIENT HISTORY: Last menstrual period patient thinks 12/21/2006 ADEQUACY OF SPECIMEN Satisfactory for evaluation * Transformation zone component identified * DIAGNOSIS NEGATIVE FOR INTRAEPITHELIAL LESION OR MALIGNANCY * This Pap test was evaluated with the assistance of the SafeOp SurgicalPrep Pap Test Imaging System. The Pap Smear [...] years. Final Interpretation electronically signed by: Janeth TAYLOR(ASCP) 03/08/07 0920 -- -- DEPARTMENT OF PATHOLOGY, [address] [place] [address] [facility] Permit #[id number] Avel Hampton M.D. Director of Laboratories Blade Andrade II, M.D . Pathologist -- 11 . 8 A negative result does not preclude the presence of a C.trachomatis or N.gonorrhoeae infection because results are dependent on adequate specimen collection, absence of inhibitors, and sufficient rRNA to be detected. Test results may be affected by improper specimen collection, improper specimen storage, technical error, or specimen mixup. . 11 . 9 A negative result does not preclude the presence of a C.trachomatis or N.gonorrhoeae infection because results are dependent on adequate specimen collection, absence of inhibitors, and sufficient rRNA to be detected. Test results may be affected by improper specimen collection, improper specimen storage, technical error, or specimen mixup. . 12 0 FINAL INTERPRETATION: No HIV antibody is detected. . This information has been disclosed to you from confidential records which are protected by [place] State law. State law prohibits you from making further disclosure of this information without the specific written consent of the person to whom it pertains, or as otherwise permitted by law. Any unauthorized further disclosure in violation of state law may result in a fine or long term sentence or both. General authorization for the release of medical or other information is not, except in limited circumstances set forth in Part 63, Title 10, of [facility], sufficient authorization for further disclosure. Disclosure of confidential HIV information that occurs as the result of a general authorization for the release of medical or other information will be in violation of the state law and may result in a fine or a long term sentence. . 12 . 1 A negative result does not preclude the presence of a C.trachomatis or N.gonorrhoeae infection because results are dependent on adequate specimen collection, absence of inhibitors, and sufficient rRNA to be detected. Test results may be affected by improper specimen collection, improper specimen storage, technical error, or specimen mixup. . 12 . 2 A negative result does not preclude the presence of a C.trachomatis or N.gonorrhoeae infection because results are dependent on adequate specimen collection, absence of inhibitors, and sufficient rRNA to be detected. Test results may be affected by improper specimen collection, improper specimen storage, technical error, or specimen mixup. . 12 SPECIMEN CONTAINS NORMAL URETHRAL OR PERINEAL ERICKA 3 AND DOES NOT SUGGEST URINARY TRACT INFECTION 50^25-50,000 ORGANISMS/ML (MODERATE)^CCU 12 THERAPEUTIC TARGET FOR THE TREATMENT OF DIABETES 4 MELLITUS PATIENTS IS <7% HBA1C, AND IN SELECTIVE PATIENTS <6.0%. PLEASE REFER TO [employer] DIABETIC CARE GUIDELINES FOR FURTHER INFORMATION. 12 FINAL: NEGATIVE FOR GROUP B STREPTOCOCCUS 5 12 REFERENCE RANGE: 5-15 MG/DL ABOVE FASTING 6 12 REFERENCE RANGE: FASTING OR 10 MG/DL BELOW 7 12 REFERENCE RANGE: 20-50 MG/DL ABOVE FASTING 8 12 THE [employer] RECOMMENDS THAT A THROAT 9 CULTURE SHOULD BE PERFORMED IF A RAPID GROUP A STREP ASSAY YIELDS A NEGATIVE RESULT. N^NEGATIVE FOR GROUP A STREP BY ENZYME IMMUNOASSAY^STREPA 13 Anion gap measurement may be of limited value in the 0 presence of any alkalosis, especially in a combined acid base disorder. . 13 Negative <0.9 1 Equivocal 0.9 - 1.1 Positive >1.1 13 Negative <0.9 2 Equivocal 0.9 - 1.1 Positive >1.1 Procedures Date Code Description Status 05/16/2018 07411 Echography Uterus Complete Completed 03/27/2018 84951 Nuchal Translucency Ultrasound /First Completed Gestation 03/12/2018 17906 Echography Uterus Limited Completed 02/01/2018 36665 OB Ultrasound First Trimester Completed 02/22/2016 65763 Insert Intrauterine Device Completed 06/11/2013 87578275 Mammogram Completed 06/08/2010 44289 Echography Transvaginal Completed 03/04/2009 11438 Delivery Only Completed 03/04/2009 14489 Delivery Routine Completed 02/24/2009 71497 Biophysical Profile W/ NST Completed 02/24/2009 55745 Biophysical Profile W/ NST Completed 02/16/2009 66744 Injection Intramuscular Or Subcutaneous Completed 02/16/2009 83440 Non-Stress Test Completed 02/08/2009 04097 Non-Stress Test Completed 02/01/2009 01067 Echography Uterus Follow-Up Or Repeat Completed 02/01/2009 43478 Non-Stress Test Completed 01/25/2009 51709 Non-Stress Test Completed 10/12/2008 85275 Echography Uterus Complete Completed 08/27/2008 13482 Nuchal Translucency Ultrasound /First Completed Gestation 09/20/2007 17553 Delivery Only Completed 09/20/2007 07654 Delivery Routine Completed 09/16/2007 24927 Non-Stress Test Completed 09/12/2007 24940 Non-Stress Test Completed 09/12/2007 73951 Non-Stress Test Completed 09/12/2007 36465 Non-Stress Test Completed 09/09/2007 61989 Biophysical Profile W/ NST Completed 09/09/2007 48511 Biophysical Profile W/ NST Completed 09/05/2007 93789 Echography Uterus Follow-Up Or Repeat Completed 09/05/2007 78336 Echography Uterus Follow-Up Or Repeat Completed 09/05/2007 11865 Non-Stress Test Completed 09/05/2007 19741 Non-Stress Test Completed 09/02/2007 18813 Non-Stress Test Completed 09/02/2007 23630 Non-Stress Test Completed 08/29/2007 66872 Non-Stress Test Completed 08/29/2007 56730 Non-Stress Test Completed 08/22/2007 99996 Non-Stress Test Completed 08/22/2007 59978 Non-Stress Test Completed 08/19/2007 16650 Non-Stress Test Completed 08/19/2007 44118 Non-Stress Test Completed 08/15/2007 23058 Biophysical Profile W/ NST Completed 08/15/2007 90791 Biophysical Profile W/ NST Completed 08/15/2007 26747 Non-Stress Test Completed 08/15/2007 02865 Non-Stress Test Completed 08/12/2007 58055 Non-Stress Test Completed 08/12/2007 55130 Non-Stress Test Completed 08/12/2007 44233 Non-Stress Test Completed 08/07/2007 89621 Non-Stress Test Completed 08/07/2007 36712 Non-Stress Test Completed 08/07/2007 05941 Non-Stress Test Completed 08/01/2007 60456 Non-Stress Test Completed 08/01/2007 48283 Non-Stress Test Completed 05/14/2007 65097 Echography Uterus Complete Completed 05/14/2007 84017 Echography Uterus Complete Completed 03/15/2007 43623 OB Ultrasound First Trimester Completed 03/15/2007 41254 OB Ultrasound First Trimester Completed 05/09/2006 88875 Care Only Completed 03/29/2006 76654 Delivery Routine Completed 03/28/2006 59259 Echography Uterus Limited Completed 03/26/2006 68539 Non-Stress Test Completed 03/21/2006 53192 Care Completed 03/14/2006 61907 Care Completed 03/07/2006 85214 Echography Uterus Complete Completed 02/21/2006 14529 Care Completed 02/07/2006 09161 Care Completed 01/24/2006 10744 Care Completed 01/12/2006 35278 Care Completed 12/28/2005 38314 Care Completed 12/22/2005 95495 Care Completed 11/20/2005 06548 Echography Uterus Complete Completed 10/23/2005 75312 Care Completed 10/06/2005 21042 Care Completed 09/11/2005 31193 Care Completed 08/28/2005 08624 Echography Uterus Complete Completed Encounters Type Date Location Provider Dx Diagnosis Office Visit 07/17/2018 [facility] Moreno Hatch, 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 Office Visit 02/01/2018 [facility] Moreno Hatch, O36.80x0 w 2:00p M.D. inconclusive viability, [facility] Office Visit 01/29/2018 [facility] Moreno Hatch, O36.80x0 w 8:40a M.D. [facility] 02/22/2016 [facility] Office Magi Lea, Z30.430 Encounter for 3:00p insertion of intrauterine contraceptive device N76.1 Subacute and chronic vaginitis Z30.431 Encounter for routine checking of intrauterine contracep dev Office Visit 06/29/2010 8:30a [facility] Julia Womack 682.9 Cellulitis & MD Johan Abscess Unspec Site Office Visit 06/22/2010 2:30p [facility] Julia Womack 277.9 Metabolic Disorder MD Johan Unspec 256.4 Polycystic Ovaries Office Visit 05/25/2010 11:00a [facility] Julia Womack 626.8 Menstruation & MD Johan Other Abnormal Bleeding Disorders Other Office Visit 08/09/2009 9:20a [facility] Dionna Schmidt 682.9 Cellulitis & Suite Q BUILDING SPECIALIST, CNM Abscess Unspec Site Office Visit 07/14/2009 10:20a [facility] Jelly Be V72.31 Routine Cost Controller Suite Q CNM Examination V74.5 Screening Examination [...] Examination Venereal Disease Office Visit 02/24/2009 9:40a [facility] Office Surya Ross, 648.80 Abnormal Glucose M.D. Tolerance Preg Episode Of Care Unsp Or N/A 654.23 Delivery Previous Antepartum Cond Or Compl 648.03 Diabetes Mellitus Antepartum Cond Or Compl Office Visit 08/18/2008 8:20a [facility] Mya Mcmullen CNM V22.1 Supervison Of Normal Other v22.1 Supervison Of Normal Other V26.33 Genetic Counseling Office Visit 09/18/2007 1:00p [facility] Office Moreno Villagomez 648.03 Diabetes Óscar Hatch M.D. Antepartum Cond Or Compl V22.1 Supervison Of Normal Other Office Visit 03/04/2007 2:00p [facility] Aniyah Singh V26.33 Genetic Counseling ANP-C V22.1 Supervison Of Normal Other Office Visit 08/07/2006 10:20a [facility] Flores Gutierrez V25.49 Contraceptive Other Brandon Sierra Method Surveillance V25.02 Contraceptive Measures Other Initiation V72.41 Test Negative V25.01 Oral Contraceptive Prescription Office Visit 04/23/2006 1:00p [facility] Office Javid Espinoza, 599.9 Urethra & Urinary M.D. Tract Unspec Disorder Office Visit 04/09/2006 3:00p [facility] Javid Espinoza, 599.0 UTI Urinary Tract M.D. Infection Site Not Spec Plan of Treatment Future Appointment(s):10/23/2018 2:30 pm - Magi Lea MD at [facility] 7:45 am - Sherrie Pickard CNM at [place] 4853310/02/2018 1:20 pm - Mya Mcmullen CNM at [facility]09/25/2018 7:45 am - Magi Lea MD at [place] 4853309/25/2018 7:45 am - Moreno Hatch M.[place]. at [facility] [place]
[2018-09-25] MEDS ORDERED: Lactated Ringers 1000 ML Bag* 1,000 ML IV ONE (02:52)
[2018-09-25] MEDS ORDERED: Buffered Lidocaine 1% SYRIN* 1 ML/SYRINGE INTRADERM ONE (02:52)
[2018-09-25] MEDS ORDERED: ceFOXitin 2 GM IVPREMIX* 2 GM/50 ML BAG IVPB ONE (02:52)
[2018-09-25] MEDS ORDERED: Sodium Citrate/Citric Acid* 15 ML UDC PO ONE ×2 (02:52→06:00)
[2018-09-25] MEDS ORDERED: Sodium Citrate/Citric Acid* 15 ML UDC ONE (02:56)
[2018-09-25] MEDS ORDERED: ceFOXitin 2 GM IVPREMIX* 2 GM/50 ML BAG ONE (02:56)
[2018-09-25] MEDS ORDERED: Lactated Ringers 1000 ML Bag* 1,000 ML IV SCH ×3 (03:00→06:00)
--- NOTE | 2018-09-25 03:02 | HP ---
General Information - Reason for Visit at 39 weeks prior section X 3 in labor. Desires sterilization. - General Information Maternal Age: 33 Grav: 4 Para: 3 SAB: 0 IEA: 0 Estimated Due Date: 10/01/18 Determined By: Early Ultrasound Gestational Age in Weeks/Days: 39 1/7 weeks Maternal Blood Type and Rh: O Positive - Results this Serology/RPR Result: Non-Reactive Rubella Result: Immune HBsAg Result: Negative HIV Result: Negative GBS Culture Result: Negative Past Medical History Delivery History: Hx C/Section Pertinent Past Medical History: See Records Pertinent Past Surgical History: See Records Pertinent Family History: See Records - Antepartal Records Antepartal Records: Reviewed, Complicated by: - Prior Section X 3 Review of Systems Constitutional: Uncomfortable CV Complaint: No Respiratory: Shortness of Breath: No Gastrointestinal: No Nausea/Vomiting, Normal Bowel Movement Genitourinary: No Dysuria, No Bleeding, No Leaking Fluid Musculoskeletal: No Complaint, No Epigastric Pain, Contractions Neurological: No Headache, No Visual Changes Movement: Normal Exam Allergies/Adverse Reactions: Allergies No Known Allergies Allergy (Verified 07/26/18 17:49) Temp 98.9 BP 134/94 P 97 RR 17 POX 99 - Measurements Height: 5 ft 2 in Weight: 220 lb Weight in lbs: 220.975241 Body Mass Index (BMI): 40.2 Pre- Weight: 195 lb Weight Gained This : 25 lbs and 0 ozs - Exam Breast: Breast Exam Deferred CVA: No CVA Tenderness Extremities: No Edema Heart: Normal Rhythm/Heart Sounds HEENT: No Significant Findings Lungs: Clear Bilaterally Rectal: Rectal Exam Deferred Reflexes: DTR 2+ Thyroid: No Thyromegaly - Abdominal Exam Abdomen Exam: Non-Tender, Fundal Height Consistent with Dates - Ultrasound/Biophysical Profile Ultrasound Status: Not Done Biophysical Profile: Normal Reactive NST Targeted Exam Findings See L&D Outpatient Visit Provider Note for Findings: N/A Cervical Exam: Closed, 2cm Effacement: Thick Station: -1 Presenting Part: Vertex Membrane Status: Intact Bleeding/Discharge: None EFM Findings - External Monitor Findings Baseline Heart Rate: 140 External Monitor Findings: Accelerations Present Contractions: Regular, 45-90 Seconds Assessment/Plan - Assessment Patient in Labor. - Obstetrical Risk Factors Obstetrical Risk Factors: Previous C/Section in Labor - Plan Plan: IV Hydration - Plan Section and bilateral tubal ligation, Expedite C/S Delivery, Antibiotic Prophylaxis - Date/Time of Admission Date of Admission: 09/25/18 Time of Admission: 02:00
[2018-09-25] MEDS ORDERED: Phenylephrine 40 MCG/ML SYRINGE ONE (03:26)
[2018-09-25] MEDS ORDERED: OXYTOCIN* 10 UNITS/ML 1 ML VIAL ONE (03:26)
[2018-09-25] MEDS ORDERED: Morphine 10 MG/ML VIAL (1 ml) ONE (03:27)
[2018-09-25] MEDS ORDERED: Morphine PF AMP (0.5MG/ML)* 5 MG/10 ML AMP ONE (03:28)
[2018-09-25] MEDS ORDERED: Ondansetron INJ* 2 MG/ML VIAL ONE (04:05)
[2018-09-25] MEDS ORDERED: Naloxone* 0.4 MG/ML 1 ML VIAL IV PRN ×2 (04:21→04:22)
[2018-09-25] MEDS ORDERED: Ondansetron INJ* 2 MG/ML VIAL IV PRN ×2 (04:21→04:22)
[2018-09-25] MEDS ORDERED: fentaNYL* 50 MCG/ML 2 ML VIAL (100 MCG VIAL) IV PRN (04:21)
[2018-09-25] MEDS ORDERED: diPHENhydraMINE IV* 50 MG/ML 1 ml VIAL (BENADRYL) IV PRN (04:22)
[2018-09-25] MEDS ORDERED: oxyCODONE/Acetamin 5/325 MG* TAB PO PRN ×3 (04:22→19:45)
[2018-09-25] MEDS ORDERED: Nalbuphine* 10 MG/ML 1 ML VIAL IV PRN (04:22)
[2018-09-25] MEDS ORDERED: Dibucaine 1% 28.35 GM TUBE PR PRN (05:05)
[2018-09-25] MEDS ORDERED: Zolpidem TAB* 5 MG PO PRN (05:05)
[2018-09-25] MEDS ORDERED: Glycerin ADULT SUPP PR PRN (05:05)
[2018-09-25] MEDS: Ketorolac INJ* 30 MG/ML 1 ML VIAL IV PRN ×3 (06:08→18:24)
[2018-09-25] MEDS: Docusate CAP* 100 MG PO SCH ×2 (10:52→16:58)
[2018-09-25] MEDS: Simethicone TAB* 80 MG TAB.CHEW PO SCH ×3 (10:52→18:25)
[2018-09-25] MEDS ORDERED: Acetaminophen TAB* 325 MG PO PRN (19:45)
[2018-09-26] MEDS: Ketorolac INJ* 30 MG/ML 1 ML VIAL IV PRN (00:57)
[2018-09-26] MEDS: Docusate CAP* 100 MG PO SCH ×4 (00:57→20:05)
[2018-09-26] MEDS: Simethicone TAB* 80 MG TAB.CHEW PO SCH ×5 (00:57→20:05)
[2018-09-26] MEDS: oxyCODONE/Acetamin 5/325 MG* TAB PO PRN ×3 (06:28→20:05)
[2018-09-26 08:10] LABS: ABS Basophils 0 10^3/ul (0-0.2); ABS Eosinophils 0.1 10^3/ul (0-0.6); ABS Lymphocytes 1.2 10^3/ul (1.0-4.8); ABS Monocytes 0.9 10^3/ul (0-0.8); ABS Neutrophils 7.1 10^3/ul (1.5-7.7); ABS Nucleated RBC 0 10^3/ul; Eosinophil % 1.1 %; Hematocrit 26 % (33-41); Hemoglobin 8.4 g/dL (12.0-16.0); Lymphocyte % 12.8 %; Mean Corpuscular HGB Conc 32 g/dL (31-36); Mean Corpuscular Hemoglobin 26 pg (27-31); Mean Corpuscular Volume 81 fL (80-97); Mean Platelet Volume 9.1 fL (7.4-10.4); Nucleated Red Blood Cells % 0; Platelet Count 165 10^3/uL (150-450); Red Blood Count 3.26 10^6 /uL (3.70-4.87); Red Cell Distribution Width 17 % (10.5-15); White Blood Count 9.3 10^3/uL (3.5-10.8)
[2018-09-26] MEDS: Ibuprofen TAB* 600 MG PO PRN ×3 (08:12→20:57)
[2018-09-26] MEDS: Ferrous Gluconate TAB* 324 MG TAB PO SCH ×2 (12:18→20:05)
--- NOTE | 2018-09-26 12:21 | OP ---
OPERATIVE REPORT: DATE OF OPERATION: 09/25/18 DATE OF : 85 SURGEON: Ryan Landaverde MD. FAMILY SERVICES COORDINATOR: Dr. Hatch. ANESTHESIA: Spinal. PRE-OP DIAGNOSES: 1. at 39 weeks. 2. Prior section x3. 3. Desires surgical sterilization. POST-OP DIAGNOSIS: 1. at 39 weeks. 2. Prior section x3. 3. Desires surgical sterilization. OPERATIVE PROCEDURE: Repeat low-transverse section and bilateral tubal ligation via fimbrie ctomy. ESTIMATED BLOOD LOSS: 500 cc. SPECIMENS SENT TO PATHOLOGY: Bilateral fallopian tubes and fimbriae. FLUIDS: She received 2450 cc of IV crystalloid fluid. URINE OUTPUT: Clear. FINDINGS: Delivery of a male infant weighing 9 pounds 4 ounces with Apgars of 9 and 9. The placenta was grossly intact with a 3-vessel cord noted. The uterus, adnexa, bowel, and bladder were all with in normal limits. There were no complications. DESCRIPTION OF PROCEDURE: The patient was taken to the operating room where she was identified. She was placed on operating room table where spinal anesthetic was obtained without difficulty. She was then placed in the supine position with a leftward tilt, prepped and draped in a normal sterile [facility] ion. A Pfannenstiel skin incision was made with a knife and carried through to the underlying layer of fascia. The fascia was nicked in the midline and extended laterally with curved Nascimento scissors. T he fascia was then grasped superiorly and inferiorly with Cher clamps and dissected out sharply fro m the rectus muscle. The rectus muscles were in the midline bluntly. The peritoneum was i dentified, grasped with pickups, and entered sharply with Metzenbaum scissors and extended superiorly and inferiorly sharply. A bladder blade was inserted into the patient's abdomen. A bladder flap wa s created using Metzenbaum scissors, over which a bladder blade was then reinserted. A low-transvers e uterine incision was made with a knife, extended laterally with bandage scissors. The amniotic sac was ruptured. The infant's head was then grasped and delivered atraumatically. The infant's body w as then delivered. The cord was clamped and cut and the infant was handed off to the awaiting [facility] rician. Cord bloods were obtained. The placenta was removed manually. The uterus was then exterior ized, cleared off all clot and debris using moist laparotomy sponges. The uterine incision was then closed using 0-Polysorb suture in a running locked fashion with a second imbricating layer of 0-Polys orb suture. At this point, a bilateral fimbriectomy was performed in the usual fashion using 3-0 Jace ysorb sutures. A portion of the fallopian tubes and fimbriae were sent to Pathology. The uterus was then returned to the patient's abdomen. The gutters were then cleared of all clots and debris using moist laparotomy sponges. All sponges and instruments were removed from the patient's abdomen. The peritoneum was closed using 3-0 Polysorb suture in a running fashion. The fascia was closed using 0 Polysorb suture in a running fashion and the skin was closed using 4-0 Monocryl subcuticular stitch. The patient tolerated the procedure well. Sponge, lap, and needle counts were correct x2. She was t hen transferred to the recovery room area in a stable condition. [id number]/[id number] #: [id number]
[2018-09-26] MEDS: Witch Hazel PAD* JAR TOPICAL PRN (20:49)
[2018-09-27] MEDS: oxyCODONE/Acetamin 5/325 MG* TAB PO PRN ×4 (02:08→21:21)
[2018-09-27] MEDS: Ibuprofen TAB* 600 MG PO PRN ×3 (06:29→18:58)
[2018-09-27] MEDS: Docusate CAP* 100 MG PO SCH ×3 (08:53→21:20)
[2018-09-27] MEDS: Ferrous Gluconate TAB* 324 MG TAB PO SCH ×2 (08:53→21:20)
[2018-09-27] MEDS: Simethicone TAB* 80 MG TAB.CHEW PO SCH ×4 (08:53→21:20)
[2018-09-28] MEDS: oxyCODONE/Acetamin 5/325 MG* TAB PO PRN ×2 (03:33→09:23)
[2018-09-28 08:11] VITALS: BP 126/78
[2018-09-28] MEDS: Ibuprofen TAB* 600 MG PO PRN (09:23)
[2018-09-28] MEDS: Docusate CAP* 100 MG PO SCH (09:24)
[2018-09-28] MEDS: Simethicone TAB* 80 MG TAB.CHEW PO SCH (09:24)
[2018-09-28] MEDS: Ferrous Gluconate TAB* 324 MG TAB PO SCH (09:24)
[2018-09-28] MEDS: Witch Hazel PAD* JAR TOPICAL PRN (09:30)
== END 2018-09-28 11:17 | disposition home or self-care (01) | DRG 540 ==
LOC: MCHOB 23:27 → EDSTATUS 09-25 07:45
PROVIDERS: ADMIT Obstetrics & Gynecology; ATTEND Obstetrics & Gynecology
PROC: 10D00Z1 Extraction of Products of Conception, Low, Open Approach (ICD-10-PCS; principal; 2018-09-24)
PROC: 4A1HXCZ Monitoring of Products of Conception, Cardiac Rate, External Approach (ICD-10-PCS; 2018-09-24)
PROC: 10907ZC Drainage of Amniotic Fluid, Therapeutic from Products of Conception, Via Natural or Artificial Opening (ICD-10-PCS; 2018-09-24)
PROC: 0UB70ZZ Excision of Bilateral Fallopian Tubes, Open Approach (ICD-10-PCS; 2018-09-24)
DX: O34.211 Maternal care for low transverse scar from previous cesarean delivery (principal); Z3A.39 39 weeks gestation of pregnancy; Z37.0 Single live birth; Z98.84 Bariatric surgery status; Z87.891 Personal history of nicotine dependence; Z30.2 Encounter for sterilization; O77.0 Labor and delivery complicated by meconium in amniotic fluid
CPT/HCPCS: 36415; 85025; 88302; A9270-GY; J0694; J1885; J2270; J2405; J2590

== ENCOUNTER 2018-10-20 20:06 | Emergency (ER) | payer OTHER ==
[2018-10-20] MEDS ORDERED: Clindamycin CAP* 150 MG PO ONE (20:58)
--- NOTE | 2018-10-20 21:00 | ED ---
Skin Complaint - HPI Summary HPI Summary: This patient is a 33 year old F presenting to [facility] with a chief complaint of drainage from the ride side from a incision for the past four days that worsened this evening with bleeding and drainage from the left side of the wound, saturating her shirt and pants. Patient was instructed by her OB, Dr. Landaverde, to come to the ED if drainage worsens. Patient denies recent fever but reports chills that she believes is related to mastitis of the right breast. Pain rated 4/10 upon triage. Patient has an appointment with her OB tomorrow. - History of Current Complaint Chief Complaint: EDRashSkinAbscess Time Seen by Provider: 10/20/18 20:29 Stated Complaint: INCISION OPENED UP PER PT Hx Obtained From: Patient Hx Last Menstrual Period: 12/2017 Onset/Duration: Started Days Ago, Worse Since - this evening Skin Exposure Onset/Duration: Weeks Ago Timing: Lasting Days Onset Severity: Mild Current Severity: Moderate Pain Intensity: 4 Pain Scale Used: 0-10 Numeric Skin Location: Abdomen Aggravating Symptom(s): Nothing Alleviating Symptom(s): Nothing Associated Signs & Symptoms: Chills, Drainage Related History: Other: - - Allergy/Home Medications Allergies/Adverse Reactions: Allergies Allergy/AdvReac Type Severity Reaction Status Date / Time No Known Allergies Allergy Verified 07/26/18 17:49 PMH/Surg Hx/FS Hx/Imm Hx Endocrine/Hematology History: Denies: Hx Diabetes, Hx Thyroid Disease Cardiovascular History: Denies: Hx Hypertension Respiratory History: Reports: Hx Sleep Apnea - evaluation for 12/2013 Denies: Hx Asthma, Hx Chronic Obstructive Pulmonary Disease (COPD) GI History: Denies: Hx Ulcer Neurological History: Reports: Hx Migraine - Surgical History Surgery Procedure, Year, and Place: (3) [place] [facility] [place] - Immunization History Date of Tetanus Vaccine: utd Date of Influenza Vaccine: fall 2017 Infectious Disease History: No Infectious Disease History: Denies: Hx Hepatitis, Hx Human Immunodeficiency Virus (HIV), Traveled Outside the [place] in Last 30 Days - Family History Known Family History: Positive: Hypertension - parents Negative: Cardiac Disease, Diabetes - Social History Alcohol Use: None Substance Use Type: Reports: None Hx Tobacco Use: Yes Smoking Status (MU): Former Smoker Type: Cigarettes Have You Smoked in the Last Year: No Review of Systems Positive: Chills. Negative: Fever Positive: Other - mastitis Positive: Other - drainage from wound All Other Systems Reviewed And Are Negative: Yes Physical Exam - Summary Physical Exam Summary: VITAL SIGNS: Reviewed. GENERAL: Patient is a well-developed and nourished female who is lying comfortable in the stretcher. Patient is not in any acute respiratory distress. HEAD AND FACE: No signs of trauma. No ecchymosis, hematomas or skull depressions. No sinus tenderness. EYES: PERRLA, EOMI x 2, No injected conjunctiva, no nystagmus. EARS: Hearing grossly intact. Ear canals and tympanic membranes are within normal limits. MOUTH: Oropharynx within normal limits. NECK: Supple, trachea is midline, no adenopathy, no JVD, no carotid bruit, no c- spine tenderness, neck with full ROM CHEST: Symmetric, no tenderness at palpation LUNGS: Clear to auscultation bilaterally. No wheezing or crackles. CVS: Regular rate and rhythm, S1 and S2 present, no murmurs or gallops appreciated. ABDOMEN: Soft, non-tender. No signs of distention. No rebound no guarding, and no masses palpated. Bowel sounds are normal. EXTREMITIES: FROM in all major joints, no edema, no cyanosis or clubbing. NEURO: Alert and oriented x 3. No acute neurological deficits. Speech is normal and follows commands. SKIN: Dry and warm, incision which is healing well except the left side of the incision there is a half cm open area with scant serous discharge, no fluctuant Breast: normal Triage Information Reviewed: Yes Vital Signs On Initial Exam: Initial Vitals Temp Pulse Resp BP Pulse Ox 98.6 F 76 18 150/88 98 10/20/18 20:16 10/20/18 20:16 10/20/18 20:16 10/20/18 20:16 10/20/18 20:16 Vital Signs Reviewed: Yes Diagnostics - Vital Signs Vital Signs Temp Pulse Resp BP Pulse Ox 10/20/18 20:16 98.6 F 76 18 150/88 98 - Laboratory Lab Statement: Any lab studies that have been ordered have been reviewed, and results considered in the medical decision making process. Course/Dx - Course Course Of Treatment: 33 year old F with a chief complaint of drainage from the ride side from a incision for the past four days that worsened this evening with bleeding and drainage from the left side of the wound, saturating her shirt and pants. Patient denies recent fever but reports chills that she believes is related to mastitis of the right breast. There is incision which is healing well except the left side of the incision there is a half cm open area with scant serous discharge, no fluctuant present. Breast exam is normal. Wound cultures are taken. Patient is given 300mg of clindamycin and sterile dressing for wound. Instructed to use warm compress over wound and to drain breasts completely to prevent mastitis. Additionally instructed to keep her appointment with her OB tomorrow. Patient given rx for clindamycin and will be dishcarged. Patient is agreeable with this plan. - Diagnoses Provider Diagnoses: Wound infection Discharge - Sign-Out/Discharge Documenting (check all that apply): Patient Departure - discharge Patient Received Moderate/Deep Sedation with Procedure: No - Discharge Plan Condition: Good Disposition: HOME Prescriptions: Clindamycin Cap(NF) [Clindamycin Cap 300 mg Cap(NF)] 300 mg PO Q6H #30 cap Patient Education Materials: Wound Infection (ED) Referrals: Amanda Castano MD [Primary Care Provider] - Additional Instructions: Keep your appointment with your OBGYN tomorrow. Use warm compresses for the wound. Completely empty your breasts to prevent mastitis. RETURN TO THE EMERGENCY DEPARTMENT FOR CHANGING OR WORSENING SYMPTOMS. - Billing Disposition and Condition Condition: GOOD Disposition: Home - Attestation Statements Document Initiated by Adán: Yes Documenting Scribe: Maddie Partida Provider For Whom Adán is Documenting (Include Credential): Joyce Toussaint MD Scribe Attestation: Maddie Lozoya, scribed for Joyce Toussaint MD on 10/21/18 at 0348. Scribe Documentation Reviewed: Yes Provider Attestation: The documentation as recorded by the Maddie clark accurately reflects the service I personally performed and the decisions made by Angie damico MD Status of Scribe Document: Viewed
[2018-10-20] MEDS ORDERED: Clindamycin CAP* 150 MG ONE (21:14)
[2018-10-20 21:19] VITALS: BP 128/80
== END 2018-10-20 21:17 | disposition home or self-care (01) ==
LOC: ED 20:06
DX: O86.00 Infection of obstetric surgical wound, unspecified (principal); R68.83 Chills (without fever); Z87.891 Personal history of nicotine dependence; G47.33 Obstructive sleep apnea (adult) (pediatric)
CPT/HCPCS: 87070; 87077; 87205; 99282; A9270-GY